=== PATIENT | male | born 1950 | race Caucasian/White ===

== ENCOUNTER 2018-08-13 08:48 | Inpatient (IN) | payer OTHER ==
[~2018-08-13] VITALS: Ht 188 cm; Wt 105.1 kg
[2018-08-13 10:50] VITALS: BP 147/77
[2018-08-13 12:01] LABS: HEMATOCRIT 31.8 % (42.0-52.0); HEMOGLOBIN 10.2 gm/dL (14.0-18.0); MCH 25.2 pg (26.0-34.0); MCHC 31.9 g/dL (28.0-37.0); MPV 7.1 fl. (7.2-11.1); NUCLEATED RBCS 0 /100WBC; PLATELET COUNT* 414 thou/uL (150-400); RBC 4.03 mil/uL (4.50-6.00); RDW-CV 17.4 % (10.5-14.5); WBC 16.4 thou/uL (4.0-11.0)
[2018-08-13] MEDS ORDERED: HUMALOG100 UNIT/1 SUBQ (12:03)
[2018-08-13] MEDS ORDERED: LASIX 20 MG TAB20 MG PO (12:04)
[2018-08-13] MEDS ORDERED: CARVEDILOL3.125 MG PO (12:05)
[2018-08-13 12:10] LABS: APTT 30.8 Seconds (25.0-31.3); INR 1.1; PROTIME 11.6 Seconds (9.20-11.50)
[2018-08-13 12:22] LABS: ALBUMIN 2.1 g/dL (3.4-5.0); CALCIUM 8.6 mg/dL (8.5-10.1); CREATININE 1.2 mg/dL (0.6-1.3); MAGNESIUM 1.7 mg/dL (1.8-2.4); POTASSIUM 3.6 mmol/L (3.5-5.1); TOTAL BILIRUBIN 0.6 mg/dL (<0.1-1.0); TOTAL PROTEIN 8.3 g/dL (6.4-8.2)
[2018-08-13 12:41] LABS: ABSOLUTE BASOPHILS 0.2 thou/uL (0.0-0.2); ABSOLUTE EOSINOPHILS 0.2 thou/uL (0.0-0.7); ABSOLUTE MONOCYTES 2.1 thou/uL (0.0-1.2); ANISOCYTOSIS 1+; PLATELET ESTIMATE INCREASED; POIKILOCYTOSIS 1+
--- NOTE | 2018-08-13 12:49 | NUR ---
Nutrition: Consult for wt change. Pt stated he has lost about 50# in past year d/t reducing kcal intake to one meal per day. He has levelled off at ~230# now and he is more comfortable at this wt. Noticed fluid in BLE. Pt had no nutrition concerns. Defer further assessment at this time.
[2018-08-13 14:23] LABS: URINE BILIRUBIN NEGATIVE (Negative); URINE BLOOD 3+ (Negative); URINE CLARITY CLEAR; URINE COLOR YELLOW; URINE GLUCOSE-RANDOM 1+ (Negative); URINE KETONES NEGATIVE (Negative); URINE LEUKOCYTES-REFLEX TRACE (Negative); URINE NITRITE-REFLEX NEGATIVE (Negative); URINE PROTEIN 2+ (Negative); URINE SPECIFIC GRAVITY 1.015 (1.005-1.030); URINE UROBILINOGEN 0.2 E.U./dl (0.2-1.0)
[2018-08-13 14:32] LABS: SQUAMOUS 0-3 Few /LPF (0-3)
[2018-08-13 14:34] LABS: CASTS None Seen /LPF (None Seen); CRYSTALS None Seen /LPF (None Seen); MUCUS 0-3 Light strn/LPF (None Seen); URINE RBC 3-10 Few /HPF (0-2); URINE WBC-REFLEX 6-15 Few /HPF (0-5)
[2018-08-13 16:00] VITALS: BP 136/62
--- NOTE | 2018-08-13 16:38 | 2DMMODE ---
[place] [address] 2 D/M-MODE ECHOCARDIOGRAM Name: SEEMA GUILLEN Room: [address] IN .R.#: [id number] Admission: 08/13/18 Attend Phys: Kamar Wetzel MD Discharge: Date of : 52 Date of Service: 08/13/18 1637 Report #: [id number] THIS REPORT FOR: //name// APPROVED REPORT Study performed: 08/13/2018 13:58:03 EXAM: Comprehensive 2D, Doppler, and color-flow Echocardiogram Patient Location: In-Patient Room #: 208 Status: routine BSA: 2.29 HR: 92 bpm BP: 147/77 mmHg Rhythm: NSR Other Information Study Quality: Good Indications Dyspnea 2D Dimensions IVSd: 12.86 (7-11mm) LVOT Diam: 21.25 (18-24mm) LVDd: 63.34 mm PWd: 11.74 (7-11mm) Ascending Ao: 38.20 (22-36mm) LVDs: 54.86 (25-40mm) Aortic Root: 37.39 mm Volumes Left Atrial Volume (Systole) LA ESV Index: 74.80 mL/m2 Aortic Valve AoV Peak Lexa.: 2.44 m/s AO Peak Gr.: 23.78 mmHg LVOT Max P.30 mmHg AO Mean Gr.: 13.64 mmHg LVOT Mean P.89 mmHg LVOT Max V: 0.91 m/s AO V2 VTI: 46.25 cm LVOT Mean V: 0.65 m/s BO (VTI): 1.36 cm2 LVOT V1 VTI: 17.70 cm Mitral Valve E/A Ratio: 0.78 MV Decel. Time: 47.65 ms MV E Max Lexa.: 1.03 m/[place] [address] 2 D/M-MODE ECHOCARDIOGRAM Name: SEEMA GUILLEN Room: [address] IN .R.#: [id number] Admission: 08/13/18 Attend Phys: Kamar Wetzel MD Discharge: Date of : 52 Date of Service: 08/13/18 1637 Report #: [id number] MV PHT: 13.82 ms MVA (PHT): 15.92 cm2 TDI E/Lateral E': 11.44 Lateral E' Lexa.: 0.09 m/s Pulmonary Valve PV Peak Lexa.: 0.97 m/s PV Peak Gr.: 3.73 mmHg Left Ventricle Left ventricle is moderately dilated. Paradoxical septal motion consistent with paced rhythm. There is global hypokinesis of the left ventricle. The anterior wall is thinned and akinetic There is normal left ventricular wall thickness. Left ventricular systolic function is moderate to severely decreased. LVEF is 25-30%. Grade I - abnormal relaxation pattern. Right Ventricle Right ventricle is dilated. The right ventricular systolic function is normal. Pacemaker lead is present in the right ventricle. Atria Left atrium is severely dilated. Right atrium is dilated. Aortic Valve Moderate aortic valve sclerosis. No aortic regurgitation is present. Moderate aortic stenosis. Mitral Valve There is mitral annular calcification. Mild mitral regurgitation. No evidence of mitral valve stenosis. Tricuspid Valve The tricuspid valve is normal in structure. Trace tricuspid regurgitation. No pulmonary hypertension. Pulmonic Valve The pulmonary valve is normal in structure. There is no pulmonic valvular regurgitation. Great Vessels The aortic root is normal in size. IVC is normal in size and collapses >50% with [place] [address] 2 D/M-MODE ECHOCARDIOGRAM Name: SEEMA GUILLEN Room: [address] IN [facility]#: [id number] Admission: 08/13/18 Attend Phys: Kamar Wetzel MD Discharge: Date of : 52 Date of Service: 08/13/18 1637 Report #: [id number] There is no pericardial effusion. <Conclusion> LVEF is 25-30%. Paradoxical septal motion consistent with paced rhythm. There is global hypokinesis of the left ventricle. The anterior wall is thinned and akinetic Left atrium is severely dilated. Moderate aortic valve sclerosis. Moderate aortic stenosis. No aortic regurgitation is present. Mild mitral regurgitation. <ELECTRONICALLY SIGNED> By: Tyler Burton MD, FACC 08/13/18 [phone] 36 Tyler Burton MD, FACC /INF
--- NOTE | 2018-08-13 17:01 | NUR ---
PT ADMITTED TO ROOM 208 VIA WHEELCHAIR DIRECT ADMIT FROM WOUND CARE. PT ORIENTED TO ROOM AND CALL LIGHT. ADMISSION ASSESSMENT AND HISTORY COMPLETED. REFER TO CHARTING. PT A&0X4, DENIES ANY PAIN OR SHORTNESS OF BREATH AT THIS TIME. BILATERAL FOOT WOUNDS NOTED. PICTURES TAKEN IN WOUND CLINIC AND PLACED IN CHART. ID AND PODIATRY CONSULT IN PLACE. ORDERS RECEIVED FOR XRAY OF FEET AND CT OF FEET. URINALYSIS OBTAINED AND SENT TO LAB. PT TRACING V PACED ON THE LABORATORY ASSISTANT. ON RA SAT UPPER 90'S. DENIES ANY SHORTNESS OF BREATH. PT UP WITH 1 ASSIST AND WALKER TO BATHROOM. ECHO AND CXR ORDERED. REFER TO RESULTS. CARDIOLOGY CONSULT PLACED PER DR MORENO FOR ELEVATED TROPONIN AND SURGERY CLEARANCE. PT STATES HE LIVES AT HOME WITH HIS WHO IS CURRENTLY IN THE HOSPITAL. PT IN CONTACT ISOLATION FOR MRSA IN WOUNDS. CULTURE PENDING. ORDERS RECEIVED FOR 500ML BOLUS PRIOR TO CT WITH CONTRAST. REFER TO EMAR. HOME MEDICATIONS RECONCILED. MEDICARE AND FALL AGREEMENT SIGNED AND PLACED IN CHART. IV ACCESS OBTAINED. MEDICATIONS PER JUN. PT REPOSITIONED EVERY 2 HOURS FOR COMFORT. HOURLY ROUNDING OBSERVED. BED IN LOW POSITION. BED ALARM IN PLACE. FALL PRECAUTIONS IN PLACE. CALL LIGHT WITHIN REACH. WILL CONTINUE PLAN OF CARE.
[2018-08-13 20:00] VITALS: BP 99/52
[2018-08-14] VITALS: BP 124/65
[2018-08-14 02:05] LABS: GLYCOHEMOGLOBIN (HGB A1C) 9.7 % (4.8-5.6)
[2018-08-14 04:00] VITALS: BP 132/64
--- NOTE | 2018-08-14 05:06 | NUR ---
PT CURRENTLY SITTING UP ON SIDE OF BED. NO C/O PAIN, PT VPACED ON MONITOR. PT NPO S[place]CE [place] FOR DEBRIDEMENT TODAY. PT ON 2L NC SINCE THIS AM. PT AM LABS TO BE REVIEWED.
[2018-08-14 05:32] LABS: ABSOLUTE BASOPHILS 0.1 thou/uL (0.0-0.2); ABSOLUTE EOSINOPHILS 0.3 thou/uL (0.0-0.7); ABSOLUTE LYMPHOCYTES 1.3 thou/uL (0.8-5.3); ABSOLUTE MONOCYTES 1.1 thou/uL (0.0-1.2); ABSOLUTE NEUTROPHILS 11.9 thou/uL (1.6-8.1); BASOPHILS 0.6 %; EOSINOPHILS 2.2 %; HEMATOCRIT 27.7 % (42.0-52.0); HEMOGLOBIN 8.7 gm/dL (14.0-18.0); LYMPHOCYTES 8.7 %; MCHC 31.3 g/dL (28.0-37.0); MCV 80.1 fL (80.0-100.0); MONOCYTES 7.6 %; MPV 7.1 fl. (7.2-11.1); NUCLEATED RBCS 0 /100WBC; POLYS 80.9 %; RBC 3.46 mil/uL (4.50-6.00); RDW-CV 17.4 % (10.5-14.5); WBC 14.8 thou/uL (4.0-11.0)
[2018-08-14 05:41] LABS: PLATELET COUNT* 300 thou/uL (150-400)
[2018-08-14 05:47] LABS: ANION GAP 1 mmol/L (7-16); BUN 19 mg/dL (7-18); CALCIUM 8.1 mg/dL (8.5-10.1); CHLORIDE 98 mmol/L (98-107); CHOLESTEROL 103 mg/dL (<200); CO2 32 mmol/L (21-32); CREATININE 1.4 mg/dL (0.6-1.3); GLUCOSE 217 mg/dL (70-99); HDL CHOLESTEROL 20 mg/dL (>40); LDL CHOLESTEROL 69 mg/dL (<100); POTASSIUM 4.1 mmol/L (3.5-5.1); SODIUM 131 mmol/L (136-145); TC:HDL 5.2 Ratio (Not establshd); TRIGLYCERIDE 74 mg/dL (<150); VLDL 15 mg/dL (<40)
[2018-08-14 05:56] LABS: SERUM ASSESSMENT Clear
[2018-08-14 06:03] LABS: % SATURATION 15 % (20-39); IRON 19 ug/dL (50-175)
[2018-08-14 07:10] VITALS: BP 142/86
--- NOTE | 2018-08-14 07:52 | NUR ---
GIVING REPORT TO ONCOMING NURSE WHEN AIDES CAME AND SAID PT WAS ON THE FLOOR BESIDE HIS BED ON HIS KNEES, WENT INTO PT ROOM WITH AMTTHEW BORGES FOR DAYSHIFT AND THE TWO CNAs. ASKED PT WHAT HAPPENED AND HE SAID THAT HE WAS SITTING ON EDGE OF BED AND MUST HAVE DOZED OFF. PT POST FALL VS TAKEN SEE CHART. PLACED CALL TO MD. PLACED PT BACK IN BED. PT STATED HE WAS NOT IN ANY PAIN. NO INJURY COULD BE NOTED. PT HAD BEEN COMPLIANT WITH CALLING FOR ASSISTANCE AND BED ALARM UTILIZED THROUGHOUT SHIFT. PT REMAINS A&OX4. PT STATED HE FEELS FINE. TWO ATTEMPTS HAVE BEEN MADE TO CONTACT DR. HAMILTON. AWAITING HIS CALL BACK.
[2018-08-14 07:57] VITALS: BP 131/68
[2018-08-14 11:48] LABS: ESR (SEDRATE) 69 mm/hr (0-20)
--- NOTE | 2018-08-14 12:04 | CON ---
[address] [address] CONSULTATION Name: MINDYSEEMA Timbo Room: [address] IN M.R.#: [id number] Admission: 08/13/18 Attend Phys: Kamar Wetzel MD Discharge: Date of : 52 Report #: [id number] THIS REPORT FOR: //name// CC: Adalberto Haines Physician staff Kamar CHAMPAGNE DATE OF SERVICE: 08/13/2018 TYPE OF REPORT: Infectious disease consultation. ATTENDING PHYSICIAN: Kamar Wetzel M.D. REASON FOR EVALUATION: Bilateral infected diabetic foot ulcer. HISTORY OF PRESENT ILLNESS: Chart reviewed, the patient examined. This is a 68-year-old gentleman with known diabetes mellitus diagnosed in the late 80s. This was complicated by peripheral neuropathy, has known vasculopathy including oblique coronary artery disease and has an implantable defibrillator as well. He noted over the course of the last several days to weeks, has had worsening appearance of his distal bilateral lower extremities. It is notable he has had multiple toe amputations with only 2 residual toes on the left foot. Denies any significant pain, although with the neuropathy, he does have increasing inflammatory signs including redness, swelling. It is not clear to me why he has had significant fevers and he has had some moderately elevated blood sugars. His appetite has been fair. Denies any significant dyspnea, has had some diarrhea. He was directly admitted from the wound care center to undergo surgical evaluation. Lab and cultures are pending. ALLERGIES: Denies. MEDICATIONS: Include insulin, furosemide and carvedilol. PAST MEDICAL HISTORY: As noted above, diabetes mellitus, sequelae. SOCIAL HISTORY: Chews tobacco. No longer drinks ethanol. FAMILY HISTORY: Noncontributory. REVIEW OF SYSTEMS: Otherwise, 10-point review of systems unremarkable except as noted above history of present illness. PHYSICAL EXAMINATION: GENERAL: He is alert, cooperative, in mild distress. He appears somewhat chronically ill. He is pleasant and cooperative[place] [address] CONSULTATION Name: SEEMA GUILLEN Room: [address] IN .R.#: [id number] Admission: 08/13/18 Attend Phys: Kamar Wetzel MD Discharge: Date of : 52 Report #: [id number] encephalopathic. VITAL SIGNS: Pending. HEENT: Normocephalic. Extraocular muscles intact. NECK: Supple. LUNGS: Diminished breath sounds. HEART: Regular rhythm. Not appreciated any murmur. ABDOMEN: Soft. Mildly distended. There are no peritoneal signs. EXTREMITIES: Bilateral lower extremities have new dressings in place. Did review the photographs showed marked necrosis and large extended for both feet. There is some vasculopathic changes noted with dermopathy of the skin of the legs and some superficial excoriations. GENITOURINARY AND RECTAL: Deferred. LABORATORY DATA: Pending. ASSESSMENT AND PLAN: Bilateral diabetic foot ulcers complicated by infection presumably polymicrobial, I suspect component of ischemia. We will continue empiric therapy. Await surgical evaluation. reversible. <ELECTRONICALLY SIGNED> By: Mor Patiño MD 08/14/18 1204 1141 [id number] Patiño MD /nt
--- NOTE | 2018-08-14 12:50 | CON ---
[address] [address] CONSULTATION Name: SEEMA GUILLEN Room: [address] IN M.R.#: [id number] Admission: 08/13/18 Attend Phys: Kamar Wetzel MD Discharge: Date of : 52 Report #: [id number] THIS REPORT FOR: //name// CC: Adalberto Haines Physician staff Kamar CHAMPAGNE DATE OF SERVICE: 08/13/2018 CHIEF COMPLAINT: Bilateral diabetic foot wounds with soft tissue infection. HISTORY OF PRESENT ILLNESS: A 68-year-old male admitted directly from [facility] for nonhealing, infected foot ulcerations. Specifically, he has a large full thickness ulceration to the right plantar foot, which has a remote history of prior transmetatarsal amputation. The left foot has a full thickness ulceration to the plantar aspect of the calcaneus. He states the wound has been present for 4 weeks, but he is unable to give a clear timeline, and he is a poor historian. He had arterial Doppler duplex ultrasound today, the report is pending. Foot radiographs were negative for osteomyelitis bilaterally. He is scheduled for CT of his feet this evening. He is currently on parenteral vancomycin and Zosyn with good tolerance. He has a pacemaker or defibrillator. Denies chest pain or heart disease or heart failure, but he does have some shortness of breath while lying flat. Chest x-ray shows right pleural effusion with lower lung opacities suggesting a lower middle lobe pneumonia/atelectasis or parenchymal scarring. Upper lungs are clear, no pneumothorax. Blood cultures pending x 2. He denies fevers, chills, nausea, malaise or foot pain. 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 LABORATORY DATA: WBC 16.4, RBC 4.03, hemoglobin 10.2, hematocrit 31.8, platelets 414. BUN 17, creatinine 1.2, glucose 222. Troponin 0.16. PHYSICAL EXAMINATION: Temperature 99.3, pulse 72, respirations 18, blood pressure 136/62. There is a large full thickness ulceration of the right plantar transmetatarsal stump that has yellow/green fibronecrotic tissue with a foul odor. There is virtually no granulation, although there are a few areas of focal bleeding when I pull off the dressing. The foot is warm, faintly palpable dorsalis pedis and posterior tibial pulses with immediate periwound capillary refill. There is no pallor or cyanosis. The wound is extremely fibrotic and encompasses the entire distal aspect of the plantar transmetatarsal stump, which is approximately 60% of the remaining plantar foot surface. The left foot has a full thickness ulceration to the posterior calcaneus with yellow/brown fibronecrotic tissue with a mixture of red granulation over about 50% of the wound. There is no visible bone or tendon. There is moderate erythema consistent with cellulitis. I can palpate the dorsalis [place] [address] CONSULTATION Name: SEEMA GUILLEN Room: [address] IN .R.#: [id number] Admission: 08/13/18 Attend Phys: Kamar Wetzel MD Discharge: Date of : 52 Report #: [id number] tibial pulse to the left extremity as well. No popliteal adenopathy noted to either extremity. No Homans or Echeverria sign to either extremity. IMPRESSION: Diabetic ulcerations to bilateral feet with soft tissue infection. PLAN: The patient requires surgical debridement of both wounds, especially the right plantar transmetatarsal stump wound. There is no evidence of osteomyelitis per x-rays, nor is there visible or palpable bone. I think it is reasonable to perform an extensive wound debridement with a topical wound care knowing that the patient may require bone debridement in the future. We will keep the patient n.p.o. tonight for possible surgical debridement tomorrow pending cardiac clearance. <ELECTRONICALLY SIGNED> By: Singh Dalal DPM 08/14/18 1250 1742 [id number] Dalal DPM /vicki
--- NOTE | 2018-08-14 13:03 | NUR ---
PT HAS CRITICAL HIGH OF VANC AT 21, JOSE IN PHARMACY NOTIFIED AND HE STATED THEY WOULD MAKE THE NECESSARY ADJUSTMENTS
[2018-08-14 13:33] LABS: URINE BILIRUBIN NEGATIVE (Negative); URINE BLOOD 2+ (Negative); URINE CLARITY CLEAR; URINE COLOR YELLOW; URINE GLUCOSE-RANDOM NEGATIVE (Negative); URINE KETONES NEGATIVE (Negative); URINE LEUKOCYTES 1+ (Negative); URINE NITRITE NEGATIVE (Negative); URINE PROTEIN NEGATIVE (Negative); URINE UROBILINOGEN 0.2 E.U./dl (0.2-1.0)
[2018-08-14 13:43] LABS: BACTERIA 1-9 Few /HPF (None Seen); CASTS None Seen /LPF (None Seen); CRYSTALS None Seen /LPF (None Seen); SQUAMOUS NONE SEEN /LPF (0-3); URINE RBC 0-2 Rare /HPF (0-2); URINE WBC 6-15 Few /HPF (0-5)
--- NOTE | 2018-08-14 14:32 | EKG ---
[place] [address] ELECTROCARDIOGRAM REPORT Name: SEEMA GUILLEN Room: [address] ADM IN M.R.#: [id number] Admission: 08/13/18 Attend Phys: Kamar Wetzel MD Discharge: Date of : 52 Report #: [id number] THIS REPORT FOR: //name// [facility] Test Date: 2018-08-13 Test Time: 14:44:09 Pat Name: SEEMA GUILLEN Department: Room: [address] Gender: M Inspector Chief: [facility] : 1950 Requested By: Kamar Wetzel Order Number: [id number] Umu MD: Seema Crum Measurements Intervals [place] Rate: 94 P: 55 HI: 129 QRS: 141 QRSD: 149 T: -21 QT: 421 QTc: 527 Interpretive Statements Atrial-sensed ventricular-paced rhythm No further analysis attempted due to paced rhythm No previous ECG available for comparison Electronically Signed On 08-14-2018 14:32:31 CDT by Seema Crum [email or web address] <ELECTRONICALLY SIGNED> By: Seema Crum MD, [facility] 08/14/18 1432 1444 1444 Seema Crum MD, FACC /EPI
--- NOTE | 2018-08-14 14:56 | NUR ---
Pt was sound asleep the first time that CM went to assess, and out of the room the second time. CM received a call from the wound care center yesterday regarding a hotline call that they placed on Pt yesterday post his appt/admission to inpt. Wound center was concerned about the condition of Pt's wounds, per wound center, Pt had feces, urine, dirt and dog hair in his wounds. Pt resides at home with his and multiple dogs, is currently also in the hospital at [facility]. Per wound center, Pt has a hx of wound care at [facility]. CM will attempt to assess Pt again tomorrow. Following.
--- NOTE | 2018-08-14 15:32 | NUR ---
CONSULTED TO PLACE PICC FOR MULTIPLE AND DIRECTOR OF CARDIAC REHABILITATION ATB THERAPY NEEDED. CHART REVIEWED. SPOKE WITH PT REGARDING RISK AND BENEFIT. VOICED UNDERSTANDING AND AGREED TO PROCEDURE. DENEIS QUESTIONS. RIGHT UPPER ARM ASSESSED WITH ULTRASOUND. RIGHT BASILIC VEIN IDENITIFIED AND MARKED. USNIG ULTRASOUND AND STERILE TECHNIQUE DOUBLE LUMAN POWER PICC PLACED TO RIGHT BASILIC VEIN PER HOSPITAL POLICY. LINE TRIMMED AT 45CMA DN ADVANCED 42CM LEAVING 3CM EXTERNAL. TIP CONFIRMED WITH SHERLOCK 3CG. GOOD BRISK BLOOD RETURN AND EASY FLUSH. LINE SECURED AND RELEASED FOR USE TO PRIMARY RN.
--- NOTE | 2018-08-14 17:23 | NUR ---
PT ARRIVED BACK TO THE UNIT AT 1715. VSS AND WILL BE CHARTED IN THE EMAR AFTER THIS NOTE IS MADE. PT HAD DEBRIDMENT PROCEDURE DONE THIS AFTERNOON AND DRESSINGS ARE CDI AT THIS TIME. WILL CONTINUE TO MONITOR AND ASSESS.
[2018-08-14 18:28] VITALS: BP 110/68
--- NOTE | 2018-08-14 19:23 | NUR ---
SPOKE WITH DR GOLD REGARDING PT FALL AND CODE STATUS THIS MORNING. PT VSS AND NO C/O PAIN OR INJURY AT THIS TIME. PT WENT DOWN FOR PROCEDURE AND IT WAS DISCOVERED WHILE PT WAS OFF UNIT THAT A TOURNIQUET WAS LEFT ON THE PT, NOT SURE WHEN THIS OCCURED THE PT HAD LABS AND A PICC LINE PLACED DURING THE TIME THE TOURNIQUET COULD HAVE BEEN USED, REDNESS WAS NOTED BUT NO INJURY NOTED AT THIS TIME. PT STEPDAUGHTER CAME TO UNIT AND LEFT SOME CLOTHING AND UPDATED THIS RN WITH HER INFORMATION (JUAN RUIZ [phone]). IT WAS AT THIS TIME IT WAS DISCOVERED THAT THE ADVANCE DIRECTIVE COULD NOT BE FOUND, THIS RN NOTIFIED BIKENDRA WITH CASE MANAGEMENT AND SHE STATED SHE WOULD COME SEE THE PT. WENT WITH NOC SHIFT RN TO SEE PT AT SHIFT CHANGE AND PT WAS FOUND TO BE SLEEPING IN BED WITH THE BED ALARM SET AT THIS TIME. HOURLY ROUNDING MAINTAINED, WILL SIGN OFF AT THIS TIME.
[2018-08-14 19:50] VITALS: BP 126/53
[2018-08-15] VITALS: BP 123/44
[2018-08-15 04:00] VITALS: BP 101/45
--- NOTE | 2018-08-15 06:09 | NUR ---
PT CARE ASSUMED AT 1930. SAT MAINTAINED IN [place]. CALL LIGHT WITHIN REACH AND BED IN LOW PPOSITION. C/O PAIN, MEDICATION GIVEN PER EMAR. ALERT AND ORIENTED X4. DRESSING C/D/I. HOURLY ROUNDING DONE FOR PT SAFETY.
[2018-08-15 08:00] VITALS: BP 103/46
--- NOTE | 2018-08-15 11:00 | NUR ---
Pt is A&O. Resides at home with his . Pt states that he is fairly independnent, completes the cooking and driving. Per Pt, is currently in the hospital, Pt is unsure why. Pt states that he uses a walker for mobility. Hx of HH but does not recall the name of the agency. Hx of skilled at [place]. CM informed of the possible need for skilled at [place], Pt stated that he wants to figure out where his is going, before he decides what skilled facility he would want to go to. CM attempted to contact Pt's stepdtr, Elizabethlinda Cruz [phone], left VM. Following.
[2018-08-15 11:49] VITALS: BP 102/50
[2018-08-15 12:43] LABS: HEMATOCRIT 24.1 % (42.0-52.0); HEMOGLOBIN 7.7 gm/dL (14.0-18.0); MCH 25.6 pg (26.0-34.0); MCHC 31.9 g/dL (28.0-37.0); MCV 80.4 fL (80.0-100.0); MPV 7.2 fl. (7.2-11.1); RBC 2.99 mil/uL (4.50-6.00); RDW-CV 17.6 % (10.5-14.5); WBC 12.3 thou/uL (4.0-11.0)
[2018-08-15 12:52] LABS: CALCIUM 7.9 mg/dL (8.5-10.1); CREATININE 2.1 mg/dL (0.6-1.3); POTASSIUM 4.3 mmol/L (3.5-5.1)
--- NOTE | 2018-08-15 15:11 | NUR ---
WOUND CARE NOTE: CONSULTED FOR DFU PT POST OP DAY ONE POST DEBRIDMENT OF BILAT FOOT WOUNDS. PT WAS ASSESED WITH ID PHYSICIAN. LEFT MEDIAL HEEL: FULL THICKNESS ULCERATION MEASURING 5.5X5X0.5. 30% RED GRANULATION TISSUE, 70% YELLOW BLACK NON VIABLE TISSUE. MACERATION TO PERIWOUND. MODERATE AMOUND OF SEROSANGUINOUS DRAINAGE NOTED ON OLD DRESSING. WOUND CLEANSED WITH WOUND CLEANSER, PATTED DRY, PICTURES OBTAINED, APPLIED AQUACEL AG TO WOUND BED, COVERED WITH ABD KERLIX AND ALEJANDRA WRAPS. LEFT LATERAL FOOT: FULL THICKNESS ULCERATION MEASURING 5X5X0.3. 50% YELLOW SLOUGH TISSUE WITH 50% RED NONGRANULAR TISSUE. SMALL AMOUNT SEROSANGUINOUS DRAINAGE TO OLD DRESSING.MALLORY WOUND WITH THICKENED SKIN. WOUND CLEANSED WITH WOUND CLEANSER, PATTED DRY PICTURE OBTAINED, APPLIED AQUACEL AG TO WOUND BED, COVERED WITH 4X4, KERLIX AND ALEJANDRA WRAPS. RIGHT MEDIAL FOOT: FULL THICKNESS ULCERATION MEASURING 2.5X3.2X0.3. MOIST RED GRANULATION TISSUE TO WOUND BED. MALLORY WOUND WITH NEW EPITHILIUM. SMALL AMOUNT OF SEROSANGUINEOUS FLUID. WOUND CLEANSED WITH WOUND CLEANSER, PATTED DRY, PICTURE OBTAINED. APPLIED AQUACEL AG TO WOUND BED, COVERED WITH 4X4, KERLIX AND ALEJANDRA WRAPS. RIGHT PLANTAR/TMA SITE: FULL THICKNESS ULCERATION, FOUL ODER NOTED. MEASURES 17X13.5X1. 80% WOUND BED NON VIALBLE BLACK, IBANEZ, YELLOW MOIST TISSUE. 20% RED NON GRANULAR TISSUE. LARGE AMOUNT OF SANGUINEOUS DRAINAGE TO OLD DRESSING. AT 5TH METATARSAL HEAD SITE SANGUINEOUS DRAINAGE STILL NOTED. MALLORY WOUND MACERATED. WOUND CLEANSED WITH WOUND CLEANSER, PATTED DRY, PICTURE OBTAINED, APPLIED AQUACEL AG TO WOUND BED, COVERED WITH ABDS, MULTIPLE LAYERS OF KERLIX, AND ALEJANDRA WRAPS. LEFT ISCHIAL TUBEROSITY: STAGE 3 PRESSURE ULCER MEASURES 0.8X0.8X0.2. MOIST YELLOW WOUND BED, WITH BUDS OF GRANULATION. MALLORY WOUND INTACT. CLEANSED WITH WOUND CLEANSER, AQUACEL AG APPLIED TO WOUND BED, COVERED WITH BOARDERED FOAM DRESSING. BLANCHABLE REDNESS TO SACRAL AREA, RED FLAKEY. BARRIOR CREAM APPLIED. PT EDUCATED ON OFFLOADING OF PRESSURE ULCER SITE, OFFLOADING FEET WITH PILLOWS. NOT WALKING MUCH POSSIBLE. USING ARMS FOR PROPELLING WC INSTEAD OF USING FEET. GOOD NUTRITION, PT STATES HE LIKES GLUCERNA. COMMUNICATED UNDERSTANDING OF EDUCATION. RECCOMENDATIONS: OFFLOAD HEELS WHILE IN BED, OFFLOAD OFF PRESSURE ULCER WITH WEDGES AND Q2 HR TURNS WHEN IN BED. LIMIT SHORT AMBULATION FROM CHAIR TO BED. USE WAFFLE CUSHION IN CHAIR/WC BARRIOR CREAM TO SACRAL AREA. ENCOURAGE GOOD NUTRITION TIGHT BLOOD GLUCOSE CONTROL
[2018-08-15 15:28] VITALS: BP 112/54
--- NOTE | 2018-08-15 15:33 | NUR ---
RECEIVED REPORT FORM RADHA BORGES. ASSUMED CARE OF PT AROUND 0730. PT A&O X4. VSS. POWER GENERATING PLANT OPERATOR IN PLACE TRACING VPACED. AM ASSESSMENT AND VITALS COMPLETED CHARTED. RONALDO PICC LINE INTACT - BLOOD DRAW SLUGGISH THIS AM; STEPHANIE BORGES TROUBLESHOOTED LINE AND IT NOW FLUSHES AND DRAWS BLOOD EASILY. PT SEEN BY WOUND NURSE THIS AFTERNOON, PICTURES TAKEN AND WOUNDS REDRESSED. PT 02 SAT 99-100% ON 2L PER NC, TITRATED OFF TO ROOM AIR BUT PT REQUESTING TO USE 1L PER NC PRN/FOR COMFORT. PT SHOWING GOOD APPETITE. VOIDING PER URINAL. UP TO BEDSIDE CHAIR WITH ASSISTANCE FOR MEALS. FALL PRECAUTIONS IN PLACE. CALL LIGHT IS WITHIN REACH. HOURLY ROUNDING PERFORMED. WCTM.
--- NOTE | 2018-08-15 18:31 | NUR ---
VSS. PT HAD LOW BLOOD SUGAR THIS EVENING - MEETER READ "LO"; GAVE DEXTROSE IV, JUICE AND CRACKERS WITH PEANUTBUTTER, BLOOD GLUCOSE CAME UP TO 95. RECHECKED GLUCOSE ONE HOUR LATER, 86. HELD DINNER-TIME INSULIN. PT ASYMPTOMATIC WITH THE LOW BLOOD GLUCOSE STATING "I DIDN'T FEEL ANY DIFFERENT". PT NOW BACK IN BED RESTING. PT BEING TURNED Q2HRS FOR COMFORT. FALL PRECAUTIONS IN PLACE. CALL LIGHT IS WITHIN REACH, HOURLY ROUNDING PERFORMED.
[2018-08-15 19:50] VITALS: BP 120/84
[2018-08-16] VITALS (7 sets, daily range): BP systolic 96–134; BP diastolic 25–71
--- NOTE | 2018-08-16 08:16 | NUR ---
PT CARE ASSUMED AT 1930. SAT MAINTAINED IN [place]. ALERT AND ORIENTED X4. CALL LIGHT WITHIN REACH AND BED IN LOW PSOITION. C/O PAIN, MEDICATION GIVEN PER EMAR. HOURLY ROUNDING DONE FOR PT SAFETY.
[2018-08-16 11:43] LABS: HEMATOCRIT 22.3 % (42.0-52.0); MCH 25.5 pg (26.0-34.0); MCHC 31.5 g/dL (28.0-37.0); MCV 80.8 fL (80.0-100.0); MPV 7.5 fl. (7.2-11.1); NUCLEATED RBCS 0 /100WBC; PLATELET COUNT* 242 thou/uL (150-400); RBC 2.76 mil/uL (4.50-6.00); RDW-CV 17.6 % (10.5-14.5); WBC 11.3 thou/uL (4.0-11.0)
[2018-08-16 12:06] LABS: ALBUMIN 1.5 g/dL (3.4-5.0); CALCIUM 7.8 mg/dL (8.5-10.1); CREATININE 2.8 mg/dL (0.6-1.3); POTASSIUM 4.7 mmol/L (3.5-5.1); TOTAL BILIRUBIN 0.3 mg/dL (<0.1-1.0); TOTAL PROTEIN 6.1 g/dL (6.4-8.2)
[2018-08-16 12:42] LABS: ABSOLUTE BASOPHILS 0.2 thou/uL (0.0-0.2); ABSOLUTE EOSINOPHILS 0.1 thou/uL (0.0-0.7); ABSOLUTE MONOCYTES 0.5 thou/uL (0.0-1.2); ABSOLUTE NEUTROPHILS 9.5 thou/uL (1.6-8.1); PLATELET ESTIMATE ADEQUATE
--- NOTE | 2018-08-16 15:06 | PATH ---
[facility] [address] [place] [address] PATHOLOGY RPT PROCEDURE Name: SEEMA SWAIN Room: [address] IN M.R.#: [id number] Admission: 08/13/18 Date of : 52 Discharge: Report #: [id number] Path Case #: [id number] [facility] Accession Number: [id number] . 01 Material submitted: . foot - RIGHT FOOT SOFT TISSUE. Modifiers: right . 01 Clinical history: . Pre-op diagnosis: Diabetic foot ulcers Post-op diagnosis: Diabetic ulcers, bilateral feet/ankle . 02 Diagnosis: Right foot tissue biopsy: - Benign fibrovascular connective tissue with non-specific acute and chronic inflammation and fibrosis and containing prominent blood vessels showing severe calcifying arteriosclerosis. (MAYRA/db; 08/16/2018) LBQ/08/16/2018 . 02 Electronically signed: . Santiago Blakely MD, Pathologist NPI- [id number] . 01 Gross description: . The specimen is received in formalin, labeled "Seema Swain, right foot tissue biopsy". Received is a segment of pale paul soft tissue measuring 2.2 x 1.3 x 0.5 cm in greatest dimensions. The specimen is trisected and entirely submitted in cassette A1. (CAA; 08/15/2018) QAC/QAC . 02 Pathologist provided ICD-10: L08.9, I70.401 . 02 CPT . 730954 Specimen Comment: A courtesy copy of this report has been sent to Specimen Comment: [phone], . Specimen Comment: Report sent to DR MORENO / DR CHAMPAGNE Performed at: [address], [place] [id number] MD Trace Fox MD Phone: [phone] Performed at: 02 [facility] [address], [place], [place] [id number] MD Santiago Blakely MD Phone: [phone]
[2018-08-16 18:31] LABS: ABSOLUTE BASOPHILS 0.1 thou/uL (0.0-0.2); ABSOLUTE EOSINOPHILS 0.3 thou/uL (0.0-0.7); ABSOLUTE LYMPHOCYTES 1.2 thou/uL (0.8-5.3); ABSOLUTE MONOCYTES 1.1 thou/uL (0.0-1.2); ABSOLUTE NEUTROPHILS 9.9 thou/uL (1.6-8.1); BASOPHILS 0.6 %; EOSINOPHILS 2.2 %; HEMATOCRIT 24.8 % (42.0-52.0); HEMOGLOBIN 7.8 gm/dL (14.0-18.0); LYMPHOCYTES 9.7 %; MCH 25.1 pg (26.0-34.0); MCHC 31.4 g/dL (28.0-37.0); MONOCYTES 8.6 %; MPV 7.5 fl. (7.2-11.1); NUCLEATED RBCS 0 /100WBC; PLATELET COUNT* 249 thou/uL (150-400); POLYS 78.9 %; RDW-CV 17.5 % (10.5-14.5); WBC 12.5 thou/uL (4.0-11.0)
--- NOTE | 2018-08-16 18:33 | NUR ---
PATINET RESTING IN BED. UP WITH ASSIST X2 TO CHAIR. BILATERAL FETT DRESSINGS IN PACE. PATINET TO RECEIVE 1 UNIT PRBC TONIGHT. VITAL SIGNS STABLE AND PATIENT IN NO APPARNET SIGNS OF DISTRESS. HOURLY ROUNDING COMPLETED FOR PATIENT SAFETY.
[2018-08-16 22:10] LABS: HEMATOCRIT 25.7 % (42.0-52.0); HEMOGLOBIN 8.1 gm/dL (14.0-18.0)
[2018-08-17] VITALS: BP 117/49
--- NOTE | 2018-08-17 02:55 | NUR ---
ASSUMED PT CARE AT 1930. ASSESSMENT COMPLETED CHARTED. ABLE TO MAKE NEEDS KNOWN. PT UP WITH 2 ASSIST TO CHAIR OR BSC. NO C/O PAIN. HAS STATED HE WAS UNCOMFORTABLE SEVERAL TIMES. REPOSITIONED SEVERAL TIMES AND OFFERED MEDICATION WHICH HE STATED HE DIDNT WANT. PT SLEEPING ON AND OFF. PT RECIEVED 1 UNIT OF BLOOD ON MY SHIFT AND HAS BEEN COMPLETED AND CHARTED WITH NO REACTIONS NOTED. WILL CONTINUE TO MONITOR.
[2018-08-17 04:00] VITALS: BP 128/39
[2018-08-17 05:57] LABS: ALBUMIN 1.5 g/dL (3.4-5.0); CALCIUM 7.7 mg/dL (8.5-10.1); CREATININE 3.3 mg/dL (0.6-1.3); POTASSIUM 5.6 mmol/L (3.5-5.1); TOTAL BILIRUBIN 0.4 mg/dL (<0.1-1.0); TOTAL PROTEIN 6.4 g/dL (6.4-8.2)
[2018-08-17 08:00] VITALS: BP 127/64
[2018-08-17 12:03] VITALS: BP 127/43
--- NOTE | 2018-08-17 16:23 | NUR ---
PATIENT RESTING IN BED. UP TO BSC AND CHAIR WITH ASSIST X1. AOX4. PATIENT HAD A LARGE BM TODAY. VITAL SIGNS STABLE. DRESSINGS CHANGED ON BOTH FEET PER WOUND CARE ORDERS. HOULRY ROUNDING COMPLETED FOR PATIENT SAFETY.
[2018-08-17 20:00] VITALS: BP 132/50
[2018-08-17 23:15] VITALS: BP 114/54
[2018-08-18 04:00] VITALS: BP 110/89
[2018-08-18 05:05] LABS: HEMATOCRIT 27.2 % (42.0-52.0); HEMOGLOBIN 8.7 gm/dL (14.0-18.0); MCH 25.9 pg (26.0-34.0); MPV 7.7 fl. (7.2-11.1); RBC 3.36 mil/uL (4.50-6.00); RDW-CV 17.4 % (10.5-14.5); WBC 11.6 thou/uL (4.0-11.0)
[2018-08-18 05:29] LABS: APTT 32.2 Seconds (25.0-31.3); INR 1.2; PROTIME 12.1 Seconds (9.20-11.50)
[2018-08-18 05:47] LABS: ALBUMIN 1.5 g/dL (3.4-5.0); ALKALINE PHOSPHATASE 113 U/L (46-116); ANION GAP 8 mmol/L (7-16); BUN 41 mg/dL (7-18); CALCIUM 7.6 mg/dL (8.5-10.1); CHLORIDE 96 mmol/L (98-107); CO2 28 mmol/L (21-32); CREATININE 3.5 mg/dL (0.6-1.3); GLUCOSE 85 mg/dL (70-99); NT-PRO BRAIN NAT PEPTIDE > 35000 pg/mL (<300); POTASSIUM 4.9 mmol/L (3.5-5.1); SGOT 27 U/L (15-37); SGPT 59 U/L (30-65); SODIUM 132 mmol/L (136-145); TOTAL BILIRUBIN 0.4 mg/dL (<0.1-1.0); TOTAL PROTEIN 6.5 g/dL (6.4-8.2)
--- NOTE | 2018-08-18 05:51 | NUR ---
ASSUMED PT CARE AT 1930. ASSESSMENT COMPLETED CHARTED. ABLE TO MAKE NEEDS KNOWN. UP TO THE CHAIR AND BACK TO BED SEVERAL TIMES DURING THE NIGHT. NO C/O PAIN OR DISCOMFORT. PT RESTING IN THE CHAIR AT THIS TIME. CALL LIGHT WITHIN REACH. WILL CONTINUE TO MONITOR.
[2018-08-18 08:00] VITALS: BP 135/63
[2018-08-18 12:00] VITALS: BP 126/48
[2018-08-18 12:06] LABS: URINE BILIRUBIN NEGATIVE (Negative); URINE BLOOD 1+ (Negative); URINE CLARITY SL CLOUDY; URINE COLOR YELLOW; URINE GLUCOSE-RANDOM NEGATIVE (Negative); URINE KETONES NEGATIVE (Negative); URINE LEUKOCYTES 1+ (Negative); URINE NITRITE NEGATIVE (Negative); URINE PROTEIN TRACE (Negative); URINE SPECIFIC GRAVITY 1.015 (1.005-1.030); URINE UROBILINOGEN 0.2 E.U./dl (0.2-1.0)
[2018-08-18 12:15] LABS: SQUAMOUS 0-3 Few /LPF (0-3); URINE WBC 6-15 Few /HPF (0-5)
[2018-08-18 12:16] LABS: CASTS None Seen /LPF (None Seen); MUCUS None Seen strn/LPF (None Seen); URINE RBC 3-10 Few /HPF (0-2)
[2018-08-18 12:17] LABS: CRYSTALS None Seen /LPF (None Seen)
--- NOTE | 2018-08-18 14:21 | NUR ---
ASSUMED PT CARE 0730, SITTING ON CHAIR. AOX4, UP WITH ASSIST. O2 SAT AT 90'S ON 5L NC. V PACED, BBB ON TELE. PT IS FOR ACCU CHECK, CARB CONTROL DIET. LAST BM 08/17/18, ABDOMEN SOFT AND ROUND. PT HAS R UPPER ARM PICC LINE INTACT. PT HAS BILATERAL FEET OPEN SORE ULCERATION. REDNESS ON THE BOTTOM NOTED. PT IS ON CONTACT ISOLATION. VSS, AM ASSESSMENT CHARTED. MEDS GIVEN PER MAR. HOURLY ROUNDING, REPOSITION Q2, CALL LIGHT WITHIN REACH. WILL CONTINUE TO MONITOR.
[2018-08-18 16:00] VITALS: BP 127/61
--- NOTE | 2018-08-18 18:34 | NUR ---
PT AOX4, UP WITH ASSIST, O2 SAT AT 90'S AT 2L NC, TITRATED FROM 5L. TRACING V PACED, BBB ON TELE. PT DAILY WOUND CLEANSING AND DRESSING DONE. PHOTOGRAPH ULCERATION, FILED ON PT CHART. PT USES URINAL, I&O. U/A COLLECTED. PT FOR ACCU CHECK, CARB CONTROL DIET. PICC LINE INTACT, FLUIDS RUNNING. VSS, ASSESSMENT CHARTED, MEDS GIVEN PER MAR. FALL PRECAUTION, REPOSITION Q2. CALL LIGHT WITHIN REACH. WILL CONTINUE TO MONITOR.
--- NOTE | 2018-08-18 18:51 | NUR ---
I HAVE REVIEWED AND AGREE WITH THE ASSESMENT AND NOTES OF SANGEETHA Kyle RN ON 08/18/18
[2018-08-18 20:00] VITALS: BP 134/49
[2018-08-19] VITALS (30 sets, daily range): BP systolic 84–135; BP diastolic 45–73
--- NOTE | 2018-08-19 11:07 | CON ---
[address] [address] CONSULTATION Name: MINDYSEEMA Izquierdo Room: [address] IN M.R.#: [id number] Admission: 08/13/18 Attend Phys: Kamar Wetzel MD Discharge: Date of : 52 Report #: [id number] THIS REPORT FOR: //name// CC: Adalberto Haines Physician staff Kamar CHAMPAGNE DATE OF SERVICE: 08/16/2018 REQUESTING PHYSICIAN: Dr. Johnson. REASON FOR CONSULTATION: Acute kidney injury. HISTORY OF PRESENT ILLNESS: The patient is a 68-year-old white male, known to us as we have seen him in our office and also in the hospital. He was at [facility] in 04/2018 and required temporary dialysis at that time. He has cardiomyopathy with ejection fraction of the left ventricle around 25-30%. He has a history of diabetes mellitus type 2, history of medical noncompliance, in the past he was heavy alcoholic but stopped drinking several years ago, history of hypertension, and CKD 3. [facility] because of worsening of his bilateral feet ulcers. He is now at the point where they are getting more and more necrotic. So, he was admitted, started with IV Zosyn and vancomycin. His creatinine was 1.2, but today it went up to 2.1 and I was consulted. PAST MEDICAL HISTORY: As I mentioned earlier. SOCIAL HISTORY: No current alcohol abuse. He still chews tobacco. In the past, he was a heavy alcoholic. FAMILY HISTORY: Noncontributory. REVIEW OF SYSTEMS: He states he feels better now. His feet, they do not bother him too much according to him. He has no chest pain. He does have dyspnea on exertion. He does have pollakiuria and nocturia. Rest of the systems reviewed and negative. MEDICATIONS: Reviewed. From my standpoint, he is not on any ALEJANDRA inhibitors or angiotensin receptor blockers. Cardiology managing his diuretics. He is also on Coreg. PHYSICAL EXAMINATION: GENERAL: He is awake, alert, oriented. VITAL SIGNS: Blood pressure today is 133/39, heart rate 72, [place] [address] CONSULTATION Name: SEEMA GUILLEN Room: [address] IN [facility]#: [id number] Admission: 08/13/18 Attend Phys: Kamar Wetzel MD Discharge: Date of : 52 Report #: [id number] HEENT: Pupils are round. NECK: Supple. LUNGS: With decreased air movements bilaterally. No crackles. CARDIOVASCULAR: Very distant heart tones. ABDOMEN: Soft. EXTREMITIES: Lower extremities: Trace edema. Both feet are dressed. ASSESSMENT: 1. Acute kidney injury, probably due to ____ infection. We will need to also make sure that he does not have vancomycin toxicity and Infectious Disease is on the case and they will follow vancomycin level. 2. Chronic kidney disease stage 3. 3. Diabetes mellitus type 2. 4. Ischemic cardiomyopathy with ejection fraction of the left ventricle 25%. 5. Bilateral necrotic ulcers of his feet. PLAN: Keep him euvolemic. Avoid nonsteroidals. Avoid ALEJANDRA inhibitors and angiotensin receptor blockers. Follow vancomycin level. Thank you very much for asking my opinion on acute kidney injury of this patient. <ELECTRONICALLY SIGNED> By: Juaquin Leal MD 08/19/18 1107 1136 0100Alexariki Leal MD /nt
[2018-08-19 11:46] LABS: CALCIUM 6.6 mg/dL (8.5-10.1); CREATININE 3.3 mg/dL (0.6-1.3); POTASSIUM 4.3 mmol/L (3.5-5.1)
--- NOTE | 2018-08-19 12:15 | NUR ---
ASSUMED PT CARE AT 0700 PT IS ALERT AND ORIENTED X 4 PT WENT FOR ANGIOGRAM CAME BACK TO UNIT BLOOD PRESSURE LOW PT DESATING ON 5L/NC PUT PT ON 10L MASK CALLED RT WHO GAVE BREATHING TREATMENT PT O2 SAT ABOVE 90 PT BLOOD SUGAR LOW GAVE PT AMP D50 RECHECKED BLOOD SUGAR 15 MINUTES LATER PT BLOOD SUGAR STABLE PAGED PHYSICIAN REGARDING BLOOD PRESSURE GAVE FLUID BOLUS MONITORING PT BLOOD PRESSURE HAS NOT COME UP PAGED PHYSICIAN PULMONOLOGY SAW PT ORDERED BIPAP AND TRANSFER TO ICU ONCE PT IS ON BIPAP, PT VPACED ON THE MONITOR, RT CALLED REGARDING BIPAP WILL CONTINUE TO MONITOR
--- NOTE | 2018-08-19 13:17 | NUR ---
RECEIVED PT FROM TELEMETRY. PT AWAKE, ALERT AND ORIENTED TO PERSON, PLACE AND YEAR. PT DROWSY. PT >95% ON BIPAP. PT REPOSITIONED WITH WEDGES.
[2018-08-19 13:40] LABS: BE -3.2 mmol/L (-2 to +3); PO2 93.7 mmHg (75.0-100.0)
[2018-08-19 13:44] LABS: PCO2 68.9 mmHg (35.0-45.0); pH 7.183 (7.340-7.450)
--- NOTE | 2018-08-19 14:22 | NUR ---
PT'S BROTHER RAQUEL GUILLEN CALLED TO GIVE UPDATE. NO ANSWER. MESSAGED LEFT.
[2018-08-19 16:57] LABS: BF RBC 2406 /mm3; TOTAL CELL COUNT 519 /mm3
[2018-08-19 17:26] LABS: CLARITY SLIGHTLY HAZY; TOTAL VOLUME 2450 ml
[2018-08-19 17:43] LABS: BF LYMPHOCYTES 83 %; BF POLYS 1 %; BF TISSUE 16 /100 WBC; SOURCE THORACENTESIS
--- NOTE | 2018-08-19 18:37 | NUR ---
PT DROWSY. PT ABLE TO STATE NAME, YEAR, LOCATION. PT ON LEVOPHED, TITRATED PER PROTOCOL. DOBUTAMIN GTT PER CARDIOLOGY ORDERS. THORACENTESIS 2460 OUT.
--- NOTE | 2018-08-19 18:56 | NUR ---
PT WORE BIPAP FROM 4752-6778. PT 100 % ON 6LNC.
[2018-08-20] VITALS (47 sets, daily range): BP systolic 83–144; BP diastolic 27–76
--- NOTE | 2018-08-20 00:42 | NUR ---
AT 1155H PT COMPLAIN OF SOB AFTER BM AND PUT BACK TO BIPAP.PT TOLERATED THE BIPAP.
--- NOTE | 2018-08-20 02:48 | NUR ---
AT 0200H, PT BACK TO NC 2LPM AND WELL TOLERATED.
[2018-08-20 04:43] LABS: HEMATOCRIT 23.9 % (42.0-52.0); HEMOGLOBIN 7.8 gm/dL (14.0-18.0); MCH 26.2 pg (26.0-34.0); MCHC 32.5 g/dL (28.0-37.0); MCV 80.7 fL (80.0-100.0); MPV 7.4 fl. (7.2-11.1); NUCLEATED RBCS 0 /100WBC; PLATELET COUNT* 235 thou/uL (150-400); RBC 2.97 mil/uL (4.50-6.00); RDW-CV 17.3 % (10.5-14.5); WBC 10.1 thou/uL (4.0-11.0)
[2018-08-20 05:29] LABS: CALCIUM 7.4 mg/dL (8.5-10.1); CREATININE 3.5 mg/dL (0.6-1.3); POTASSIUM 4.9 mmol/L (3.5-5.1)
[2018-08-20 06:18] LABS: ABSOLUTE BASOPHILS 0.2 thou/uL (0.0-0.2); ABSOLUTE EOSINOPHILS 0.4 thou/uL (0.0-0.7); ABSOLUTE LYMPHOCYTES 0.5 thou/uL (0.8-5.3); ABSOLUTE MONOCYTES 0.8 thou/uL (0.0-1.2); ABSOLUTE NEUTROPHILS 8.2 thou/uL (1.6-8.1); METAMYELOCYTES 1 %; MYELOCYTES 1 %
[2018-08-20 06:19] LABS: ANISOCYTOSIS 1+; MICROCYTES 2+; PLATELET ESTIMATE ADEQUATE
[2018-08-20 06:20] LABS: HYPOCHROMASIA 2+
--- NOTE | 2018-08-20 06:27 | NUR ---
LEVOPHED 4MIC/MIN MAINTAINED. BP IS STABLE. NO RESPIRATORY DISRESS NOTED AFTER 0200H.
[2018-08-20 09:12] LABS: BODY FLUID AMYLASE 25 U/L (()); BODY FLUID LDH 99 IU/L (()); BODY FLUID PROTEIN 2.6 g/dL (())
--- NOTE | 2018-08-20 12:04 | NUR ---
PT TRANSFERRED TO ICU YESTERDAY. PT ALERT AND ORIENTED. HE SAID HE IS SCHEDULED FOR A BKA ON SUNDAY. HE SAID HIS IS CURRENTLY AT THE [facility] FOR SNF, HE WOULD LIKE TO GO THERE FOR SNF ALSO SO THEY COULD BE TOGETHER. CASE MGT WILL CONTINUE TO FOLLOW.
[2018-08-20 14:06] LABS: BODY FLUID PH 7.2 (Not Estab.)
--- NOTE | 2018-08-20 18:43 | NUR ---
PATIENT PROGRESSED WELL TOWARDS GOALS TODAY. WEANED OFF LEVOPHED AT 11AM TODAY AND TOELRATING WELL. PATIENT HAS BEEN VERY UNCOMFORTABLE THROUGHOUT SHIFT, ASKING TO DANGLE FEET OFF BED AND SIT UP, ATTEMPTED TO REPOSITON, EDUCATED PATIENT THAT HE CANNOT DANGLE FEET PER DR STAPLETON. PATIENT UPSET BUT UNDERSTANDS. PAIN MEDICINE GIVEN FOR BACK AND FOOT PAIN. RIGHT BKA SCHEDULED FOR SUNDAY. BED IN LOWEST POSITON, PUT BACK ON BIPAP FOR DIFFICULTY BREATHING TOWARDS END OF SHIFT. CALL LIGHT IN REACH.
[2018-08-21] VITALS (54 sets, daily range): BP systolic 75–201; BP diastolic 15–79
[2018-08-21 04:48] LABS: ALBUMIN 1.4 g/dL (3.4-5.0); CREATININE 3.7 mg/dL (0.6-1.3); POTASSIUM 5.3 mmol/L (3.5-5.1); TOTAL BILIRUBIN 0.3 mg/dL (<0.1-1.0)
--- NOTE | 2018-08-21 05:54 | NUR ---
AFEBRILE, VITALS STABLE THROUGH MOST OF THE NIGHT. LEVOPHED GTT STARTED PER PROTOCOL AT 0340 FOR MAP>60. HR 60s-70s WITH DOBUTAMINE GTT THROUGH THE NIGHT. PATIENT VERY ANXIOUS, WANTS TO DANGLE HIS LEGS OVER THE BED. KEPT ON SAYING HE "CAN'T DO THIS ANYMORE". ATIVAN X2 WITH COMPLETE RELIEF. MORPHINE X1 FOR PAIN. PATIENT ABLE TO SLEEP THROUGH MOST OF THE NIGHT FOLLOWING ANXIOLYTIC. NO BM THIS SHIFT, UOP 125 CC. Q2 TURNS FOR SKIN INTEGRITY. CALL LIGHT WITHIN REACH.
--- NOTE | 2018-08-21 06:44 | NUR ---
DR. THORNE CALLED TO CHECK IF PATIENT WOULD BE WILLING TO HAVE HIS SURGERY MOVED TO THIS MORNING. PATIENT AGREES. DR. THORNE UPDATED ON PATIENT STATUS. REPORTS HE WILL BOOK AN OR AND HAVE HIM PICKED AROUND [phone]. SON, DEVYN, CALLED TO LET HIM KNOW OF THIS.
--- NOTE | 2018-08-21 06:57 | NUR ---
2 UNITS OF BLOOD ORDERED PER DR. THORNE'S REQUEST TO BE PREPARED AND HELD FOR SURGERY. ORDERED AND LAB NOTIFIED OF STAT ORDER.
[2018-08-21 07:30] LABS: ABSOLUTE EOSINOPHILS 0.3 thou/uL (0.0-0.7); ABSOLUTE LYMPHOCYTES 0.9 thou/uL (0.8-5.3); ABSOLUTE MONOCYTES 0.9 thou/uL (0.0-1.2); ABSOLUTE NEUTROPHILS 9.3 thou/uL (1.6-8.1); BASOPHILS 0.4 %; EOSINOPHILS 2.7 %; HEMOGLOBIN 7.4 gm/dL (14.0-18.0); LYMPHOCYTES 8.1 %; MCH 25.9 pg (26.0-34.0); MCV 81.1 fL (80.0-100.0); MONOCYTES 7.7 %; MPV 7.8 fl. (7.2-11.1); NUCLEATED RBCS 0 /100WBC; PLATELET COUNT* 237 thou/uL (150-400); POLYS 81.1 %; RBC 2.84 mil/uL (4.50-6.00); RDW-CV 17.5 % (10.5-14.5); WBC 11.5 thou/uL (4.0-11.0)
[2018-08-21 11:43] LABS: BE -1.3 mmol/L (-2 to +3); PCO2 36.2 mmHg (35.0-45.0)
[2018-08-21 11:46] LABS: PO2 131.6 mmHg (75.0-100.0)
--- NOTE | 2018-08-21 13:09 | CON ---
[address] [address] CONSULTATION Name: GUILLENSEEMA Izquierdo Room: [address] IN M.R.#: [id number] Admission: 08/13/18 Attend Phys: Kamar Wetzel MD Discharge: Date of : 52 Report #: [id number] THIS REPORT FOR: //name// CC: Adalberto Haines Physician staff Kamar CHAMPAGNE DATE OF SERVICE: 08/19/2018 REASON FOR EVALUATION: Acute respiratory failure, the patient has severe hypoxemia, abnormal chest x-ray, bilateral effusion. REFERRING PHYSICIAN: Dr. Heath. HISTORY OF PRESENT ILLNESS: Chart reviewed, discussed with Dr. Heath, student Whitney as well as his nurse. He is a 68-year-old gentleman with known history of diabetes diagnosed in the 80s, peripheral neuropathy, vasculopathy, coronary artery disease, defibrillator, known to have congestive heart failure with systolic heart failure with ejection fraction of 25%. He came in with worsening lower extremity wounds, had multiple toe amputations. Since admission, had diabetic foot ulcers, had angioplasty yesterday, had gangrenous extremities. Since yesterday, the patient is having progressive shortness of breath, progressive hypoxemia, currently on a nonrebreather. He is on 15 liters, we do not have blood gas. He is arousable, following commands, but encephalopathic. Per nursing staff and his primary team, he has been more lethargic, had minimal cough. No chest pain. The chest x-ray, which I have reviewed, showed worsening bilateral effusion, bilateral infiltrate and on admission had right effusion. As above, known to have acute systolic heart failure, poorly controlled diabetes, has acute kidney injury, which is worsening. Had debridement of bilateral foot wound per surgery including tendon and fascia. ALLERGIES: Denies. HOME MEDICATIONS: Include insulin, Lasix, Coreg. PAST MEDICAL HISTORY: As above, includes diabetic foot, diabetes, poorly controlled; peripheral vascular disease, coronary artery disease, severe congestive heart failure, systolic with ejection fraction of 25%. SOCIAL HISTORY: Chews tobacco, previous history of alcohol. FAMILY HISTORY: [place] [address] CONSULTATION Name: SEEMA GUILLEN Room: [address] IN [facility]#: [id number] Admission: 08/13/18 Attend Phys: Kamar Wetzel MD Discharge: Date of : 51 Report #: [id number] REVIEW OF SYSTEMS: Not obtainable. The patient is lethargic; however, a 14-point review of system from reviewing the chart, discussing with the staff and his nurse, has progressive shortness of breath, minimal cough. No chest pain. Has lower extremity wounds, post debridement. Has intermittent claudication. PHYSICAL EXAMINATION: GENERAL: The patient is encephalopathic, lethargic, arousable, following commands. He is on nonrebreather, oxygen saturation is adequate. VITAL SIGNS: Blood pressure 140/45. He is afebrile. Pulse is 61, respiratory rate is 20, temperature at this time is 36. HEAD AND NECK: Neck is supple. Oral mucosa clear. CHEST: Decreased breath sounds severely at the lower bases. CARDIOVASCULAR: Regular rhythm, normal S1, S2. ABDOMEN: Obese, nontender. EXTREMITIES: Had edema, which is severe. Currently has dressing; however, per history, has gangrenous wounds. PSYCHIATRIC: Unable to evaluate. LABORATORY DATA AND OTHER DATABASE: His white blood cell count is 11.6, currently stable; hemoglobin 8.7, required 1 unit of blood transfusion, has been running low since 08/14/2018. Platelet count 208. Chemistry, sodium, hyponatremia. Creatinine is 3.3, followed by nephrology, has developed acute kidney injury since admission. Natriuretic peptide on 08/19/2018, as expected 35,000. C-reactive protein severely elevated at 129. Prealbumin is 6.6. Albumin 1.5. ASSESSMENT AND PLAN: The patient is a 68-year-old gentleman, currently having acute respiratory failure. Chest x-ray reviewed, has bilateral effusion, bibasilar infiltrate. He has acute kidney injury as well, suspect he has severe sepsis, may be going into septic shock and source is likely his leg wound with methicillin-resistant Staphylococcus aureus. Cannot exclude pneumonia, cannot exclude a complicated effusion. At this time, with his progressive multiorgan dysfunction, recommend ICU care. Discussed with Dr. Heath who agrees. Recommend to switch his antibiotics to Zyvox as daptomycin does not have adequate lung penetration. When transferred to the ICU, recommend to start pressors with Levophed. Recommend to start BiPAP with history of congestive heart failure. Recommend thoracentesis and to drain up to 1/2 liter, send pleural fluid evaluation of complicated effusion, empyema. [address] [address] CONSULTATION Name: SEEMA GUILLEN Room: M.002-P ADM IN M.R.#: [id number] Admission: 08/13/18 Attend Phys: Kamar Wetzel MD Discharge: Date of : 51 Report #: [id number] Likely, his uncontrolled sepsis is related to inadequate source control. The patient may need further amputation. May need limited echo to evaluate cardiac function. We will defer to cardiology who has been consulted. He has multiorgan failure, severe sepsis. We will obtain lactic acid. Monitor labs. The patient remains very critical. Critical care time taking care of the patient, discussing with staff was 76 minutes. <ELECTRONICALLY SIGNED> By: Jyotsna Kumar MD 08/21/18 1309 1235 0248Achelo Kumar MD /nt
[2018-08-21 17:42] LABS: SOURCE THORACENTESIS
--- NOTE | 2018-08-21 19:36 | NUR ---
PT ASSESSMENT CHARTED. PT'S RESPIRATORY STATUS AT BEGINNING OF SHIFT WAS DECREASED. PT UNAROUSABLE AND VERY LETHARGIC. BIPAP PLACED BACK ON PATIENT BRIEFLY BUT UNABLE TO TOLERATE AND ONLY HOLDING O2 SATURATION AROUND 85%. CHEST XRAY OBTAINED, ABG WAS UNABLE TO BE DRAWN BY RT. PULMONARY NOTIFIED. ORDER RECEIVED TO INTUBATE. PT ATTEMPTED TO BE INTUBATED WITH THE 4TH TIME BEING SUCCESSFUL. PT SEDATED PER ORDERS. LEVOPHED AND DOPAMINE MAXED DURING INTUBATION AND TITRATED OFF SHORTLY AFTER INTUBATION. LEVOPHED AND DOPAMINE RESTARTED LATER THIS AFTERNOON WELL LASIX DRIP. DOBUTAMINE INCREASED PER CARDIOLOGY. VASCULAR PAGED AND NOTIFIED ABOUT PATIENT CONDITION/INTUBATION. THEY WERE UNSURE AT THIS TIME IF THEY WOULD BE ATTEMPTING SURGERY IN THE MORNING. SON (DEVYN) NOTIFIED ABOUT SURGERY NOT HAPPENING TODAY AND THAT PATIENT WAS INTUBATED. SON STATED THAT HE LIVES 3.5 HOURS AWAY AND WOULD NOT BE ABLE TO COME. HE ALSO STATED THAT THE PATIENT'S MAY BE IN THE HOSPITAL WELL AND WAS UNABLE TO GIVE CONTACT INFORMATION FOR HER. LAND DEVELOPER PAGED REGARDING PATIENT BEING MAXED ON LEVOPHED AND CLOSE TO MAX ON DOPAMINE. NO NEW ORDERS RECEIVED. PT'S HR ALSO ELEVATED. NO FEVERS THROUGHOUT THE DAY.
[2018-08-22] VITALS (109 sets, daily range): BP systolic 74–178; BP diastolic 23–75
--- NOTE | 2018-08-22 02:37 | NUR ---
REPORT RECEIVED FROM OFF GOING SHIFT AND CARE ASSUMMED. PT REMAINS ON VENTILATOR.. ETT 7.5 25@@LIP. SETTINGS AC 16 TV 450, PEEP5 AND FIO2 60%. OGT 77 CM AT LIP AND CONNECTED TO LIS. TUBE NOT DRAINING WELL AND IRRIGATED WITH 50CC WATER. PT CONTINUE TO HAVE TROUBLE MAINTAINING SATS AND BP. DR LANDON NOTIFIED AND NEW ORDERS RECEIVED X2. MONITORS INTACT AND ALARMS SET SEE EMAR FOR MEDICATIONS AND MED TITRATION DOCUMENTATION FOR RATE ADJUSTMENTS. PT HAS VERY SMALL AMOUNT OF URINE OUTPUT. WILL CONTINUE TO MONITOR. DR LANDON IS AWARE.
[2018-08-22 04:15] LABS: ALBUMIN 1.3 g/dL (3.4-5.0); CALCIUM 7.1 mg/dL (8.5-10.1); POTASSIUM 4.7 mmol/L (3.5-5.1); TOTAL BILIRUBIN 0.5 mg/dL (<0.1-1.0); TOTAL PROTEIN 6.1 g/dL (6.4-8.2)
--- NOTE | 2018-08-22 05:43 | NUR ---
PATIENT ON VENT SUPPORT. SEDATION TITRATED PER PROTOCOL, PROPOFOL TURNED OFF AT 0030, FENTANYL AT 40MCG/HR. ON SUPPORT OF LEVO AT 30MCG/MIN, DOPAMINE AT 20MCG/KH/HR AND DOBUTAMINE AT 10MCG/KG/HR. BP SOFT. SPONGE BATH PROVIDED. LT LEG WOUND DRESSING DONE PER ORDER.
[2018-08-22 06:01] LABS: BE -11.7 mmol/L (-2 to +3); PO2 73.2 mmHg (75.0-100.0)
[2018-08-22 06:03] LABS: PCO2 71.2 mmHg (35.0-45.0); pH 7.048 (7.340-7.450)
[2018-08-22 07:38] LABS: HEMATOCRIT 28.6 % (42.0-52.0); HEMOGLOBIN 8.8 gm/dL (14.0-18.0); MCH 25.3 pg (26.0-34.0); MCHC 30.7 g/dL (28.0-37.0); MCV 82.3 fL (80.0-100.0); MPV 7.5 fl. (7.2-11.1); NUCLEATED RBCS 0 /100WBC; RBC 3.47 mil/uL (4.50-6.00); RDW-CV 17.1 % (10.5-14.5)
[2018-08-22 07:40] LABS: PLATELET COUNT* 339 thou/uL (150-400)
[2018-08-22 07:42] LABS: WBC 43.3 thou/uL (4.0-11.0)
[2018-08-22 07:53] LABS: BE -8.7 mmol/L (-2 to +3)
[2018-08-22 07:57] LABS: PCO2 51.5 mmHg (35.0-45.0); pH 7.195 (7.340-7.450)
[2018-08-22 08:47] LABS: ABSOLUTE LYMPHOCYTES 1.3 thou/uL (0.8-5.3); METAMYELOCYTES 1 %; MYELOCYTES 1 %
[2018-08-22 08:48] LABS: ANISOCYTOSIS 2+; PLATELET ESTIMATE ADEQUATE
[2018-08-22 11:01] LABS: ABSOLUTE BASOPHILS 0.1 thou/uL (0.0-0.2); ABSOLUTE EOSINOPHILS 0.1 thou/uL (0.0-0.7); ABSOLUTE LYMPHOCYTES 1.1 thou/uL (0.8-5.3); ABSOLUTE MONOCYTES 1.1 thou/uL (0.0-1.2); ABSOLUTE NEUTROPHILS 35.8 thou/uL (1.6-8.1); BASOPHILS 0.3 %; EOSINOPHILS 0.2 %; HEMATOCRIT 26.1 % (42.0-52.0); HEMOGLOBIN 8.3 gm/dL (14.0-18.0); LYMPHOCYTES 2.8 %; MCH 25.6 pg (26.0-34.0); MCHC 31.8 g/dL (28.0-37.0); MCV 80.2 fL (80.0-100.0); MPV 7.4 fl. (7.2-11.1); NUCLEATED RBCS 0 /100WBC; POLYS 93.7 %; RBC 3.25 mil/uL (4.50-6.00); RDW-CV 17.2 % (10.5-14.5); WBC 38.3 thou/uL (4.0-11.0)
[2018-08-22 11:04] LABS: PLATELET COUNT* 264 thou/uL (150-400)
[2018-08-22 11:15] LABS: CALCIUM 6.8 mg/dL (8.5-10.1); POTASSIUM 5.1 mmol/L (3.5-5.1)
[2018-08-22 14:27] LABS: BE -6.4 mmol/L (-2 to +3); PCO2 47.6 mmHg (35.0-45.0); PO2 66.5 mmHg (75.0-100.0)
[2018-08-22 14:29] LABS: pH 7.253 (7.340-7.450)
[2018-08-22 17:24] LABS: URINE BILIRUBIN NEGATIVE (Negative); URINE BLOOD NEGATIVE (Negative); URINE CLARITY CLEAR; URINE COLOR YELLOW; URINE GLUCOSE-RANDOM NEGATIVE (Negative); URINE KETONES TRACE (Negative); URINE LEUKOCYTES 1+ (Negative); URINE NITRITE NEGATIVE (Negative); URINE PROTEIN 1+ (Negative); URINE SPECIFIC GRAVITY 1.025 (1.005-1.030); URINE UROBILINOGEN 0.2 E.U./dl (0.2-1.0)
[2018-08-22 17:33] LABS: URINE WBC 6-15 Few /HPF (0-5); YEAST Present (None Seen)
[2018-08-22 17:34] LABS: BACTERIA 1-9 Few /HPF (None Seen)
[2018-08-22 17:39] LABS: CRYSTALS None Seen /LPF (None Seen); MUCUS None Seen strn/LPF (None Seen); SQUAMOUS NONE SEEN /LPF (0-3)
[2018-08-22 17:40] LABS: HYALINE CASTS 0-3 Few /LPF (None Seen); URINE RBC None Seen /HPF (0-2)
--- NOTE | 2018-08-22 17:42 | NUR ---
PT CARE ASSUMED AFTER REPORT. ASSESSMENTS COMPLETE. V PACED ON MONITOR. BP 70'S/30'S THIS AM AFTER DOPAMINE D/C'D PER NICHOL HENDERSON. VASOPRESSEN, EPI, AND NUNU STARTED AND TITRATED. PT BP BETTER THIS PM. EPI AND NUNU TITRATED OFF AT THIS TIME. D5 WITH BICARB INFUSING. LANDIN TO DD WITH LITTLE OUTPUT. UA SENT TO LAB. PT TO POSSIBLY HAVE DIALYSIS, PER DR RONDON, IN THE AM. PT FAMILY NOTIFIED OF HIS CONDITION AND DAUGHTER/GRANDSON AND 2 OTHER FAMILY MEMBERS HERE TODAY. SON NOTIFIED AND STATES THAT HE WILL COME [place]. PT SEDATION TITRATED UP PRN FOR PT COMFORT. PT PROGRESSING TOWARDS SOME GOALS.
[2018-08-23] VITALS (69 sets, daily range): BP systolic 73–183; BP diastolic 46–89
[2018-08-23 04:57] LABS: HEMATOCRIT 22.6 % (42.0-52.0); HEMOGLOBIN 7.3 gm/dL (14.0-18.0); MCH 25.6 pg (26.0-34.0); MCHC 32.4 g/dL (28.0-37.0); MPV 7.6 fl. (7.2-11.1); RBC 2.86 mil/uL (4.50-6.00); RDW-CV 17.5 % (10.5-14.5); WBC 37.3 thou/uL (4.0-11.0)
[2018-08-23 05:37] LABS: ALBUMIN 1.8 g/dL (3.4-5.0); CREATININE 3.4 mg/dL (0.6-1.3); TOTAL BILIRUBIN 0.7 mg/dL (<0.1-1.0); TOTAL PROTEIN 5.2 g/dL (6.4-8.2)
--- NOTE | 2018-08-23 07:08 | NUR ---
PATIENT ON VENT SUPPORT, SEDATED WITH FENTANYL AT 100MCG/HR. ADMINISTERED ATIVAN 2MG IV TWICE THIS SHIFT FOR AGITATION. SPONGE BATH GIVEN. DAUGHTER TAVO UPDATED ABOUT HIS CONDITION. LEVOPHED TITRATED PER PROTOCOL.
[2018-08-23 10:31] LABS: BE -0.8 mmol/L (-2 to +3); PCO2 42.5 mmHg (35.0-45.0); pH 7.376 (7.340-7.450)
[2018-08-23 10:33] LABS: PO2 169.5 mmHg (75.0-100.0)
--- NOTE | 2018-08-23 14:41 | PATH ---
[address] [address] PATHOLOGY RPT PROCEDURE Name: SEEMA GUILLEN Room: [address] IN R#: [id number] Admission: 08/13/18 Date of : 52 Discharge: Report #: [id number] Path Case #: [id number] Note [facility] Accession Number: [id number] TESTS RESULT FLAG UNITS REF RANGE LAB Clinician Provided Cytology Information No. of containers..01 Other (Miscellaneous) Source: RIGHT PLEURAL FLUID DIAGNOSIS: 02 RIGHT PLEURAL FLUID NEGATIVE FOR MALIGNANT CELLS. FEW MESOTHELIAL CELLS, RBCs AND INFLAMMATORY CELLS. THIS INTERPRETATION INCLUDES EVALUATION OF A CELL BLOCK. Signed out by: 02 Santiago Blakely MD, Pathologist NPI- [id number] Performed by: 01 Merary Cao, Police And Fire Dispatcher ([facility]) Gross description: 01 90ML, YELLOW, HAZY /LCS FLAG LEGEND: L-Low Normal,H-High Normal,LL-Alert Low,HH-Alert High <-Panic Low,>-Panic High,A-Abnormal,AA-Critical Abnormal Performed at: [address] [place] [address] Trace Fox MD, [address] [place] [address] [facility], [place] [address] Santiago Blakely MD, Specimen Comment: A courtesy copy of this report has been sent to Specimen Comment: [phone], , . Specimen Comment: Report sent to DR MORENO / DR CHAMPAGNE Specimen Comment: Report sent to Specimen Comment: A duplicate report has been generated due to demographic updates. Performed at: [address], [place], [place] [id number] MD Trace Fox MD Phone: [phone]
--- NOTE | 2018-08-23 17:40 | NUR ---
PT TO SURGERY WITH SURGERY NURSE STAFF.
--- NOTE | 2018-08-23 18:23 | NUR ---
PT BACK FROM SURGERY. R FOOT AMPUTATED. DRESSING TO SURGICAL SITE C/D/I. PROPPED UP ON WEDGES AND A PILLOW. VSS. LEVOPHED, D5 WITH BICARB, AND FENTANYL INFUSING. LANDIN TO DD. PT REMAINS SEDATED ON THE VENT. NO S/S OF PAIN OBSERVED.
[2018-08-24] VITALS (21 sets, daily range): BP systolic 76–148; BP diastolic 26–72
--- NOTE | 2018-08-24 06:05 | NUR ---
patient progressing towards goals. remains on levo titrated down to 1 mcg tolerating well. continues on dobutamine per cardiology orders. V-paced on monitor. urine output 1300ml. right foot amputation dressing had red, serosanguineous draniage on katherine wrap and observerd some on pillow. reinforced dressing added abd and another layer of guaze. both legs have remained elevated. pt received full bed bath with linen change. q2h turns and oral care. will continue to monitor.
[2018-08-24 06:51] LABS: ABSOLUTE BASOPHILS 0.1 thou/uL (0.0-0.2); ABSOLUTE LYMPHOCYTES 0.6 thou/uL (0.8-5.3); ABSOLUTE MONOCYTES 0.5 thou/uL (0.0-1.2); ABSOLUTE NEUTROPHILS 25.5 thou/uL (1.6-8.1); BASOPHILS 0.2 %; HEMATOCRIT 20.9 % (42.0-52.0); LYMPHOCYTES 2.3 %; MCH 25.4 pg (26.0-34.0); MCHC 32.7 g/dL (28.0-37.0); MCV 77.6 fL (80.0-100.0); MONOCYTES 1.9 %; MPV 7.2 fl. (7.2-11.1); NUCLEATED RBCS 0 /100WBC; PLATELET COUNT* 175 thou/uL (150-400); POLYS 95.6 %; RBC 2.69 mil/uL (4.50-6.00); RDW-CV 18.1 % (10.5-14.5); WBC 26.7 thou/uL (4.0-11.0)
[2018-08-24 07:09] LABS: PREALBUMIN 7.1 mg/dL (18.0-35.7)
[2018-08-24 07:12] LABS: HEMOGLOBIN 6.8 gm/dL (14.0-18.0)
[2018-08-24 07:18] LABS: ALKALINE PHOSPHATASE 89 U/L (46-116); ANION GAP 10 mmol/L (7-16); BUN 47 mg/dL (7-18); CALCIUM 6.8 mg/dL (8.5-10.1); CHLORIDE 89 mmol/L (98-107); CO2 27 mmol/L (21-32); CREATININE 3.4 mg/dL (0.6-1.3); GLUCOSE 198 mg/dL (70-99); POTASSIUM 4.7 mmol/L (3.5-5.1); SGOT 11 U/L (15-37); SGPT 13 U/L (30-65); SODIUM 126 mmol/L (136-145); TOTAL BILIRUBIN 0.6 mg/dL (<0.1-1.0); TOTAL PROTEIN 5.4 g/dL (6.4-8.2)
[2018-08-24 07:20] LABS: NT-PRO BRAIN NAT PEPTIDE > 35000 pg/mL (<300)
[2018-08-24 07:53] LABS: CALCIUM 6.7 mg/dL (8.5-10.1); CREATININE 3.3 mg/dL (0.6-1.3); MAGNESIUM 1.3 mg/dL (1.8-2.4); PHOSPHORUS* 6.3 mg/dL (2.5-4.9); POTASSIUM 4.6 mmol/L (3.5-5.1)
[2018-08-24 14:19] LABS: HEMATOCRIT 21.7 % (42.0-52.0); HEMOGLOBIN 7.3 gm/dL (14.0-18.0)
--- NOTE | 2018-08-24 14:39 | NUR ---
Okysrolc-tu-ocy came in from out of town. Is trying to get DPOA, states has financial sales advisor and working on paperwork as her mom has DPOA now. Phone number is [phone], back up number [phone].
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
[2018-08-25] VITALS (79 sets, daily range): BP systolic 55–219; BP diastolic 37–89
--- NOTE | 2018-08-25 06:02 | NUR ---
REPORT RECEIVED FROM OFF GOING SHIFT AND CARE ASSUMMED. PT REMAINS IN ISOLATION (CONTACT) FOR MRSA. PT REMAINS ON VENTILATOR ETT 7.5 25 AT LIP VENT SETTINGS FIO2 70%, PEEP 8, TV 550 AC 18. PT HAD AN EPISODE OF DESATING AND O2 INCREASED TO 100%. CURRENTLY FIO2 IS AT 80%. DRESSING TO LEFT FOOT AND HEEL CHANGED. DRESSIGN TO RIGHT LEG INTACT. MONITORS INTACT WITH ALARMS SET. LANDIN INTACT AND PATENT DRIANING YELLOW URINE. GLUCERNA TUBE FEEDING INFUSING AT 40CC/HR GOAL 70CC/HR VIA OGT . RESIDUALS THIS SHIFT 10,10,10. WILL CONTINUE TO MONITOR. ABDOMIN IS FIRM AND DISTENDED. WILL CONTINUE TO MONITOR
[2018-08-25 07:51] LABS: HEMATOCRIT 23.9 % (42.0-52.0); HEMOGLOBIN 7.9 gm/dL (14.0-18.0); MCH 26.2 pg (26.0-34.0); MCHC 33.2 g/dL (28.0-37.0); MCV 78.9 fL (80.0-100.0); MPV 7.9 fl. (7.2-11.1); NUCLEATED RBCS 0 /100WBC; PLATELET COUNT* 161 thou/uL (150-400); RBC 3.03 mil/uL (4.50-6.00); RDW-CV 17.7 % (10.5-14.5); WBC 21.8 thou/uL (4.0-11.0)
[2018-08-25 08:01] LABS: ALBUMIN 2.5 g/dL (3.4-5.0); CREATININE 3.1 mg/dL (0.6-1.3); POTASSIUM 4.6 mmol/L (3.5-5.1); TOTAL BILIRUBIN 1.1 mg/dL (<0.1-1.0); TOTAL PROTEIN 5.4 g/dL (6.4-8.2)
[2018-08-25 09:00] LABS: ABSOLUTE LYMPHOCYTES 1.1 thou/uL (0.8-5.3); ABSOLUTE MONOCYTES 0.2 thou/uL (0.0-1.2); ABSOLUTE NEUTROPHILS 20.5 thou/uL (1.6-8.1)
[2018-08-25 09:01] LABS: ANISOCYTOSIS 1+; MICROCYTES 1+; PLATELET ESTIMATE ADEQUATE
[2018-08-25 09:02] LABS: HYPOCHROMASIA 1+
--- NOTE | 2018-08-25 14:19 | NUR ---
[id number] PT TURNED TO LEFT SIDE, (RIGHT LUNG UP), PT DID NOT TOLERATE POSITION, BLOOD PRESSURE TRENDING DOWN, PEAK PRESSURES IN 40'S, A/V PACED ON MONITOR. DISCUSSED FINDINGS WITH DR. KEARNEY, ORDERS TO NOT TURN PT AT THIS TIME, TOO UNSTABLE, DISCUSSED COCCYX WOUNDS, DR RESPONSE, "PRIORITY RIGHT NOW IS PT RESPIRATORY STATUS, DO NOT TURN RIGHT NOW."
--- NOTE | 2018-08-25 14:24 | NUR ---
[id number] PT SUCTIONED, LARGE PLUG REMOVED, BP 227/141, VPACED, LEVOPHED OFF, ORDERS NOT TO TURN PT. WILL MONITOR CLOSELY.
--- NOTE | 2018-08-25 18:24 | NUR ---
UNABLE TO PICTURE COCCYX TODAY, ORDERS TO NOT TURN PATIENT.
[2018-08-26] VITALS (45 sets, daily range): BP systolic 99–141; BP diastolic 47–64
[2018-08-26 04:20] LABS: ABSOLUTE LYMPHOCYTES 0.8 thou/uL (0.8-5.3); ABSOLUTE MONOCYTES 0.4 thou/uL (0.0-1.2); ABSOLUTE NEUTROPHILS 17.4 thou/uL (1.6-8.1); BASOPHILS 0.2 %; HEMATOCRIT 25.8 % (42.0-52.0); HEMOGLOBIN 8.4 gm/dL (14.0-18.0); LYMPHOCYTES 4.1 %; MCH 25.7 pg (26.0-34.0); MCHC 32.7 g/dL (28.0-37.0); MCV 78.8 fL (80.0-100.0); MONOCYTES 2.2 %; MPV 7.9 fl. (7.2-11.1); NUCLEATED RBCS 0 /100WBC; PLATELET COUNT* 149 thou/uL (150-400); POLYS 93.5 %; RBC 3.27 mil/uL (4.50-6.00); RDW-CV 17.8 % (10.5-14.5); WBC 18.7 thou/uL (4.0-11.0)
[2018-08-26 04:35] LABS: ALBUMIN 2.4 g/dL (3.4-5.0); CALCIUM 7.2 mg/dL (8.5-10.1); CREATININE 2.8 mg/dL (0.6-1.3); TOTAL BILIRUBIN 0.8 mg/dL (<0.1-1.0); TOTAL PROTEIN 5.5 g/dL (6.4-8.2)
[2018-08-26 04:57] LABS: POTASSIUM 3.6 mmol/L (3.5-5.1)
--- NOTE | 2018-08-26 07:19 | NUR ---
PATIENT UNDER VENT SUPPORT, SETTINGS UNCHANGED, TOLERATED WELL OVERNIGHT. SEDATION WITH FENTANYL AND PRECEDEX, TITRATED PER PROTOCOL. VSS. NO ANY IONOTROPIC SUPPORT. LEFT LEG WOUND DRESSED PER ORDERS. COMPLETE BED BATH GIVEN AND LINENS CHANGED. WOUND AT THE SACRUM DRESSED AND PHOTOGRAPHS TAKEN, ATTAHCED TO THE CHART. OG FEEDING CONTD AT 50 MLS/HR, RESIDUE 0/5/0 ML. LASIX DRIP CONTD AT 5.5 MLS/HR. NO BM THIS SHIFT.
--- NOTE | 2018-08-26 10:15 | NUR ---
PT HAD GUILLOTINE AMPUTATION OF RIGHT LEG ON 08/23. REMAINS ON VENT. NO FAMILY HERE AT THIS TIME BUT ACCORDING TO NURSING, FAMILY MEMBERS WERE HERE OVER THE WEEKEND.
--- NOTE | 2018-08-26 11:53 | OP ---
[address] [address] OPERATIVE REPORT Name: SEEMA GUILLEN Room: [address] IN M.R.#: [id number] Admission: 08/13/18 Attend Phys: Kamar Wetzel MD Discharge: Date of : 52 Report #: [id number] THIS REPORT FOR: //name// CC: Adalberto Haines Physician staff Kamar DOZIERURI DATE OF SERVICE: 08/23/2018 PREOPERATIVE DIAGNOSES: 1. Sepsis. 2. Diabetic foot ulcer as possible source of sepsis. POSTOPERATIVE DIAGNOSES: 1. Sepsis. 2. Diabetic foot ulcer as possible source of sepsis. PROCEDURE: Right guillotine amputation emergent. SURGEON: Reji Smyth MD MUSHROOM SPAWN MAKER: Dr. Jung, resident year 2. COMPLICATIONS: None. ESTIMATED BLOOD LOSS: 100 mL. SPECIMEN: Includes right foot. ANESTHESIA: General. INDICATIONS FOR PROCEDURE: The patient is a 68-year-old white male who has a right diabetic foot wound. This was no longer salvageable per Dr. Torres with Podiatry. We were planning elective amputation earlier in the week; however, the patient was unable to consent due to altered mental status. He slowly became septic over the week and it was clear that his right foot may be the source of the sepsis. For this reason, we are proceeding with emergent amputation today. The patient is still unable to consent as he is intubated and sedated. We will proceed under emergent consent due to medical necessity. DESCRIPTION OF PROCEDURE: The patient was taken to the OR. He remained in his ICU bed as he was too unstable to transfer to the OR table. We prepped and draped his leg sterilely on the bed. Anesthesia was initiated as much as possible with his unstable status. We performed guillotine amputation using a combination of electrocautery and the bone saw. We ligated the anterior tibial, [place] [address] OPERATIVE REPORT Name: SEEMA GUILLEN Timbo Room: [address] IN [facility]#: [id number] Admission: 08/13/18 Attend Phys: Kamar Wetzel MD Discharge: Date of : 52 Report #: [id number] posterior tibial and peroneal arteries individually using silk suture ligature. We controlled bleeding as needed with electrocautery. I packed the open amputation site with Betadine-soaked Kerlix, covered it with ABDs, Kerlix wrap and Can wrap. The patient tolerated the procedure well, was taken intubated and sedated back to the ICU in critical condition. All needle and instrument counts were correct. <ELECTRONICALLY SIGNED> By: Mark King DO 08/26/18 1153 1812 [id number] Smyth MD /vicki
--- NOTE | 2018-08-26 11:53 | OP ---
[facility] [place] [address] OPERATIVE REPORT Name: SEEMA GUILLEN Room: [address] IN M.R.#: [id number] Admission: 08/13/18 Attend Phys: Kamar Wetzel MD Discharge: Date of : 52 Report #: [id number] THIS REPORT FOR: //name// CC: Adalberto Haines Physician staff Kamar CHAMPANGE DATE OF SERVICE: 08/19/2018 PREOPERATIVE DIAGNOSES: Peripheral vascular disease with ulcer, right lower extremity. POSTOPERATIVE DIAGNOSES: Peripheral vascular disease with ulcer, right lower extremity. SURGEON: Rasheed Richmond DO. WETLAND SCIENTIST: Karthik Jung, and JULIAN Damon. ANESTHESIA: Moderate sedation. ESTIMATED BLOOD LOSS: Minimal. PROCEDURES: 1. Ultrasound-guided access, left common femoral artery. 2. Aortogram with CO2. 3. Right lower extremity angiogram catheter position in third order with CO2. 4. Tibial angiogram with minimal contrast technique. 5. Anterior tibial artery angioplasty with Bard VascuTrak 3 x 100 and Bard Ultraverse 2 mm x 20. 6. Angiogram left lower extremity with CO2 contrast through retrograde sheath. ESTIMATED BLOOD LOSS Minimal. SPECIMEN: None. COMPLICATIONS: None. CONDITION: Stable. DISPOSITION: Floor. INDICATIONS FOR THE PROCEDURE AND CONSENT: The patient is a 68-year-old male with acute renal insufficiency, bilateral foot ulcers and peripheral vascular disease. He is unable to undergo CT angiogram due to contraindication to a [address] [address] OPERATIVE REPORT Name: SEEMA GUILLEN Room: [address] IN M.R.#: [id number] Admission: 08/13/18 Attend Phys: Kamar Wetzel MD Discharge: Date of : 52 Report #: [id number] significant contrast use. Recommendation for right lower extremity angiogram for limb salvage was made. Risks and benefits were discussed, infection, bleeding, need for additional procedures, renal failure and contrast nephropathy even from minimal contrast. The patient wished to proceed, was consented and scheduled. PROCEDURE IN DETAIL: After timeout was performed, the patient was placed in supine position with sterile prep and drape of the bilateral groins, bilateral thighs and lower abdomen. Ultrasound was utilized to identify the left common femoral artery and Seldinger technique used to place 6-St Lucian sheath. Glidewire Advantage and UF catheter were advanced into the infrarenal aorta and a CO2 aortogram was performed. This demonstrated widely patent bilateral renal arteries, aorta and bilateral common iliac and internal and external iliac vessels. I advanced the UF catheter and Glidewire Advantage into the right external iliac vessel. I then performed CO2 angiography of the bilateral thighs, which demonstrated bilateral patency of the common femoral, superficial femoral and profunda vessels. I attempted to take tibial angiography with CO2 as well and I was able to visualize that the anterior tibial artery did not feel well on the right side. I advanced the Glidewire Advantage and seeker catheter into the popliteal vessel and performed a limited contrast using 20% contrast injections of the tibial vessels. This demonstrated the peroneal and posterior tibial artery patent to the ankle with mild disease. The anterior tibial artery appeared to have severe tandem stenosis and near occlusion and reconstituted at the ankle level. I then systemically heparinized with 6000 units of heparin with intention to treat. The Glidewire Advantage and seeker catheter were able to advance into the anterior tibial vessel without difficulty. I was unable to pass the Glidewire Advantage beyond what appeared to be either a near occlusion or occlusion in the mid tibial vessel. I exchanged for an up and over 6-St Lucian sheath and then exchanged for an 0.014 Glidewire Advantage and advanced into the distal tibia with only mild difficulty. I then obtained the VascuTrak cutting balloon and was able to angioplasty the proximal tibial vessel with this. It was not able to be passed into the distal anterior tibial vessel. I obtained a 2 mm x 20 mm Ultraverse balloon and was able to pass this and do tandem inflations of the distal tibial vessel. Repeat angiography demonstrated an adequate radiographic result, without significant recoil and a patent tibial vessel. I did not feel additional intervention was prudent at this point. I was satisfied with the result and therefore, I retracted the sheath and wire into the left external iliac vessel and performed CO2 angiography of the left tibial region. This demonstrated a symmetric pattern as the right side, with patent posterior tibial and peroneal vessel and heavily diseased anterior tibial. It also appeared to be appropriate for Angio-Seal closure and a 6-St Lucian Angio-Seal was selected and deployed in sterile fashion. Pressure was held for [address] [place] [address] OPERATIVE REPORT Name: SEEMA GUILLEN Room: 002-P [facility] IN M.R.#: [id number] Admission: 08/13/18 Attend Phys: Kamar Wetzel MD Discharge: Date of : 52 Report #: [id number] hemostasis. The patient tolerated the procedure well. All lap, needle and instrument counts were correct. <ELECTRONICALLY SIGNED> By: Mark King DO 08/26/18 1153 1044 1136Rasheed Richmond DO /nt
--- NOTE | 2018-08-26 13:40 | NUR ---
PT FAILED WEANING TRIAL. BP 70/30. RT ALSO ADJUSTED O2 SETTING ON THE VENT TO INCREASE AT 60%.
--- NOTE | 2018-08-26 18:05 | NUR ---
PT CARE ASSUMED AFTER REPORT. ASSESSMENTS COMPLETE. V PACED ON MONITOR. LANDIN TO DD. PT SEDATED ON THE VENT. LOWER EXTREMITIES ELEVATED ON PILLOWS AND WEDGES. TUBE FEEDS THROUGH OG TUBE. NO S/S OF PAIN. NOT PROGRESSING TOWARDS GOALS.
[2018-08-27] VITALS (25 sets, daily range): BP systolic 66–145; BP diastolic 34–64
[2018-08-27 04:38] LABS: CALCIUM 7.3 mg/dL (8.5-10.1); CREATININE 2.9 mg/dL (0.6-1.3); MAGNESIUM 1.7 mg/dL (1.8-2.4); PHOSPHORUS* 6.1 mg/dL (2.5-4.9); POTASSIUM 3.5 mmol/L (3.5-5.1)
--- NOTE | 2018-08-27 06:30 | NUR ---
PATIENT REMAINS UNDER VENT SUPPORT, 02 SATS DOWN TO 87% AT 0500, PT SUCTIONED, REPOSITIONED ON LT SIDE AND FIO2 INCREASED TO 60% FROM 50%. 02 SATS GRADUALLY IMPROVED >92%. TOLERATING TUBE FEEDS, GLUCERNA AT 50 MLS/HR. NO BM THIS SHIFT. LT HEEL WOUND CLEANED PER PROTOCOL. SPONGE BATH GIVEN. PT HAD A LOW GRADE FEVER, TMAX 101.1, COOL FAN AND ICE PACKS APPLIED, TEMP DOWN TO 97 AT 0600.
[2018-08-27 10:21] LABS: HEMATOCRIT 27.6 % (42.0-52.0); HEMOGLOBIN 9.1 gm/dL (14.0-18.0); MCH 26.2 pg (26.0-34.0); MCHC 32.9 g/dL (28.0-37.0); MCV 79.6 fL (80.0-100.0); MPV 7.8 fl. (7.2-11.1); NUCLEATED RBCS 0 /100WBC; PLATELET COUNT* 119 thou/uL (150-400); RBC 3.46 mil/uL (4.50-6.00); WBC 25.9 thou/uL (4.0-11.0)
[2018-08-27 10:29] LABS: URINE BILIRUBIN NEGATIVE (Negative); URINE BLOOD TRACE (Negative); URINE CLARITY CLEAR; URINE COLOR YELLOW; URINE GLUCOSE-RANDOM NEGATIVE (Negative); URINE KETONES TRACE (Negative); URINE LEUKOCYTES-REFLEX 1+ (Negative); URINE NITRITE-REFLEX NEGATIVE (Negative); URINE PROTEIN NEGATIVE (Negative); URINE UROBILINOGEN 0.2 E.U./dl (0.2-1.0)
[2018-08-27 10:42] LABS: ABSOLUTE LYMPHOCYTES 0.8 thou/uL (0.8-5.3); ABSOLUTE MONOCYTES 0.8 thou/uL (0.0-1.2); ABSOLUTE NEUTROPHILS 24.3 thou/uL (1.6-8.1); PLATELET ESTIMATE DECREASED
[2018-08-27 10:43] LABS: ALBUMIN 1.9 g/dL (3.4-5.0); CALCIUM 7.1 mg/dL (8.5-10.1); POTASSIUM 3.7 mmol/L (3.5-5.1); TOTAL PROTEIN 5.1 g/dL (6.4-8.2); TOXIC GRANULATION 2+
[2018-08-27 10:44] LABS: TARGET CELLS 1+
[2018-08-27 10:45] LABS: HYPOCHROMASIA 2+; MICROCYTES 2+
[2018-08-27 10:59] LABS: SQUAMOUS NONE SEEN /LPF (0-3); URINE WBC-REFLEX 6-15 Few /HPF (0-5)
[2018-08-27 11:00] LABS: BACTERIA-REFLEX None Seen /HPF (None Seen); HYALINE CASTS >10 Many /LPF (None Seen); MUCUS 0-3 Light strn/LPF (None Seen); URINE RBC 0-2 Rare /HPF (0-2)
--- NOTE | 2018-08-27 11:00 | NUR ---
LENGTHY DISCUSSION WITH STEP-DAUGHTER REBECCA ([phone]). SHE SAID PT 'HAS BEEN A PART OF MY LIFE FOR 30 YEARS, HE IS MY ONLY DAD.' SHE SAID FOR A NUMBER OF YEARS SHE WAS EXTRANGED FROM HER MOTHER AND PATIENT 'DUE TO THEIR LIFESTYLE CHOICES, THEY DRINK A LOT.' SHE SAID SHE RECONNECTED WITH THEM ABOUT A YEAR AGO AND 'WE HAVE GOTTEN REALLY CLOSE AGAIN IN THE PAST YEAR.' SHE SAID SHE DOESN'T GET ALONG WITH SOME MEMBERS OF THE FAMILY, 'THEY ARE TRYING TO TAKE OVER AND MANAGE EVERYTHING, THEY DON'T KEEP ME IN THE LOOP. I JUST WANT TO MAKE SURE MY MOTHER AND FATHER ARE TAKEN CARE OF AND I DON'T THINK THEY WERE.' PT'S IS EITHER IN A RETIREMENT OR ALCOHOL TREATMENT, UNCLEAR FROM REBECCA'S DESCRIPTION. AT ONE POINT SHE SAID SHE IS TRYING TO GET HER MOTHER UP HERE TO SEE THE PATIENT, AND THEN SHE SAID SHE DIDN'T KNOW FOR SURE WHERE HER MOTHER WAS. SHE SAID SHE HADN'T SEEN PT OR HER MOTHER SINCE THE END OF MAY BUT 'OTHER FAMILY MEMBERS LED ME TO BELIEVE THEY WERE GETTING ALONG OKAY AT HOME, THAT THEY WERE CHECKING ON THEM REGULARLY BUT I DON'T THINK THEY WERE.' REBECCA REPORTS THAT THEIR HOUSE IS FILTHY AND THAT THEY HAVE BED BUGS AT HOME. REBECCA AT TIMES SEEMED TO HAVE TROUBLE FOCUSING ON ONE THOUGHT AT A TIME WHILE WE WERE TALKING SO NOT SURE THE ACCURACY OF WHAT SHE WAS SAYING. SHE SAID SHE THINKS AT ONE POINT PATIENT HAD AN ADVANCE DIRECTIVE NAMING HIS , AND ONLY HIS , HIS AGENT. BUT NOT CLEAR FROM REBECCA'S DESCRIPTION IF HIS IS ALERT AND ABLE TO MAKE DECISIONS FOR PATIENT BASED ON HER OWN HEALTH ISSUES. REBECCA COULD NOT GIVE ANY SPECIFIC EXAMPLES OF PHYSICAL OR FINANCIAL ABUSE OF PATIENT BY OTHER FAMILY MEMBERS. NURSING NOTIFIED THAT REBECCA REPORTS PT HAVING BED BUGS AT HIS HOME.
[2018-08-27 11:01] LABS: CRYSTALS None Seen /LPF (None Seen); YEAST-REFLEX Present (None Seen)
[2018-08-27 11:10] LABS: BE -3.3 mmol/L (-2 to +3); PCO2 48.8 mmHg (35.0-45.0); PO2 60.8 mmHg (75.0-100.0)
[2018-08-27 11:12] LABS: pH 7.296 (7.340-7.450)
--- NOTE | 2018-08-27 14:01 | NUR ---
WOUND CARE NOTE: ASSISTED VASCULAR BUSINESS COORDINATOR WITH DRESSING CHANGE TO RIGHT LEG. DRESSING REMOVED. DISCOLORATION NOTED TO THE ANTERIOR MARTINES. MACERATION NOTED TO THE MALLORY-WOUND. UNABLE TO REMOVE ALL GAUZE DUE TO IT BEING ADHERENT TO INCISION SITE. ATTEMPTED TO REMOVE GAUZE WITH SALINE, BUT CONCERNED WOULD CAUSE PATIENT TO BLEED. COVERED OLD GAUZE WITH ABDS. SECURED WITH KERLIX THEN ALEJANDRA. RECOMMEND MICRO TURNS KEEP LOW AIR LOSS MATTRESS ON ENCOURAGE GOOD NUTRTION/HYDRATION ONCE ABLE HOB OF BED <30 DEGREES ONCE ABLE LIMIT LAYERS OF LINEN UNDER PATIENT
--- NOTE | 2018-08-27 18:43 | NUR ---
08/27 Days: Decreased O2 saturations this morning. Increase FiO2 from 65 to 80%. Vent changes later in day with increase of peep from 8 to 10, resp 18 to 22, and decreased TV to 500. Plan for thoracentesis tomorrow am. PTT elevated, sub-q heparin held until after thoracentesis. Dressing changes completed on bilateral extremities. Right leg to be re-inforced only at this time. Patient tolerated small turns through-out the day. Levo restarted to help kidney profusion as SBP remained in the 90's. Lasix gtt increased to 10mg/hr from 5, no increase in UOP, 285 for this shift.
--- NOTE | 2018-08-27 21:22 | NUR ---
PATIENT'S TUBE FEED RESIDUAL AMOUNT 550 MLS, BROWN IN COLOR, LIQUID CONSISTENCY (LIKE A BROTH). DR MORENO NOTIFIED, TUBE FEED ON HOLD, KEPT IN LIS.
[2018-08-28] VITALS (18 sets, daily range): BP systolic 119–150; BP diastolic 39–62
--- NOTE | 2018-08-28 03:20 | NUR ---
PATIENT'S 02 SATS DOWN TO 81%, RT BAGGED HIM FOR 10 MINUTES AND PULLED OUT HIS ET TUBE TO 23CMS, INCREASED FIO2 TO 100%. 02 SATS BACK UP TO 99%
[2018-08-28 04:51] LABS: ALBUMIN 1.8 g/dL (3.4-5.0); CALCIUM 7.2 mg/dL (8.5-10.1); CREATININE 3.1 mg/dL (0.6-1.3); MAGNESIUM 1.7 mg/dL (1.8-2.4); PHOSPHORUS* 6.5 mg/dL (2.5-4.9); POTASSIUM 3.3 mmol/L (3.5-5.1)
[2018-08-28 05:22] LABS: ABSOLUTE LYMPHOCYTES 0.5 thou/uL (0.8-5.3); ABSOLUTE MONOCYTES 0.2 thou/uL (0.0-1.2); ABSOLUTE NEUTROPHILS 18.5 thou/uL (1.6-8.1); BASOPHILS 0.2 %; HEMATOCRIT 27.1 % (42.0-52.0); HEMOGLOBIN 8.9 gm/dL (14.0-18.0); LYMPHOCYTES 2.8 %; MCH 25.8 pg (26.0-34.0); MCHC 32.7 g/dL (28.0-37.0); MONOCYTES 1.2 %; MPV 8.4 fl. (7.2-11.1); NUCLEATED RBCS 0 /100WBC; PLATELET COUNT* 101 thou/uL (150-400); POLYS 95.8 %; RBC 3.43 mil/uL (4.50-6.00); RDW-CV 17.6 % (10.5-14.5); WBC 19.3 thou/uL (4.0-11.0)
[2018-08-28 06:15] LABS: ALBUMIN 1.9 g/dL (3.4-5.0); CALCIUM 6.8 mg/dL (8.5-10.1); CREATININE 3.1 mg/dL (0.6-1.3); POTASSIUM 3.3 mmol/L (3.5-5.1); TOTAL BILIRUBIN 1.2 mg/dL (<0.1-1.0); TOTAL PROTEIN 4.9 g/dL (6.4-8.2)
--- NOTE | 2018-08-28 07:30 | NUR ---
PT HAS LOW GRADE FEVER, COLD SPONGING AND COOL FAN APPLIED. COMPLETE BED BATH PROVIDED AND LINENS CHANGED. LEVOPHED TURNED OFF. LASIX CONTD AT 10MG/HR. TOTAL DRAIN FROM OG- 2750 MLS OVERNIGHT. LEFT HEEL WOUND DRESSED PER ORDERS.
[2018-08-28 09:01] LABS: BE 1.1 mmol/L (-2 to +3); PCO2 48.1 mmHg (35.0-45.0); PO2 72.7 mmHg (75.0-100.0); pH 7.365 (7.340-7.450)
--- NOTE | 2018-08-28 15:06 | PATH ---
[address] [address] PATHOLOGY RPT PROCEDURE Name: MINDYSEEMA Timbo Room: 002-P [facility] IN M.R.#: [id number] Admission: 08/13/18 Date of : 52 Discharge: Report #: [id number] Path Case #: [id number] [facility] Accession Number: [id number] . 01 Material submitted: . foot - RIGHT FOOT. Modifiers: right . 01 Clinical history: . Acute diabetic foot infection with sepsis . 02 Diagnosis: Right foot: - Benign right foot and ankle with extensive acute inflammation and necrosis at sites of all 5 missing toes and nonspecific ulceration on medial ankle, and with severe diffuse calcifying arteriosclerosis of anterior and posterior vasculature. (MAYRA:anh; 08/28/2018) MBTimbo/08/28/2018 . 02 Electronically signed: . Santiago Blakely MD, Pathologist NPI- [id number] . 01 Gross description: . The specimen is received in formalin, labeled "Seema Swain, right foot" and consists of an amputated right foot status post amputation of all 5 toes. The specimen is amputated 3.0 cm proximal to the ankle bone and the skin soft tissue and bone margin grossly appear viable. The specimen measures 14.8 cm heel to proximal skin soft tissue margin and 19.3 cm heel to distal foot. Protruding from the proximal margin is the tibia (1.2 cm in length and 1.8 cm in diameter) and fibula 1.2 cm in length and 3.4 cm in diameter). The skin shows marked gangrenous necrosis at the site of all 5 toe amputations which measures 13.8 x 10.5 cm. There is an additional ulcerated lesion on the medial ankle (2.5 x 1.5 cm) that extends 5.0 cm from the proximal skin soft tissue margin. The heel is pink red and erythematous with the dorsal foot consisting of brown flaky skin extending 4.0 cm from the skin soft tissue margin. The medial ankle and plantar foot necrosis/ulcerations expose the underlying soft tissue but no bone is grossly exposed. The vasculature reveals marked calcifications and stenosis of both the anterior and posterior vessels. Chemistry Faculty Member sections are submitted as follows: . A1: Skin soft tissue margin A2: Distal foot and medial ankle ulceration/necrosis (smaller frag from medial ankle) A3: Anterior and posterior vasculature A4: Bone deep to medial ankle (larger segment) and distal foot at post status first toe (2 smaller frag) [place] [address] PATHOLOGY RPT PROCEDURE Name: SEEMA SWAIN Room: [facility]- ADM IN M.R.#: [id number] Admission: 08/13/18 Date of : 52 Discharge: Report #: [id number] Path Case #: [id number] A3 and A4 are submitted following decalcification. (SDY; 08/27/2018) SYU/SYU . 02 Pathologist provided ICD-10: L08.9, I96, L97.319, I70.291 . 02 CPT . 351116, 421954 Specimen Comment: A courtesy copy of this report has been sent to Specimen Comment: [phone], , . Specimen Comment: Report sent to ,DR MORENO / DR CHAMPAGNE Performed at: 01 [facility] [address], [place], [place] [id number] MD Trace Fox MD Phone: [phone] Performed at: [address] [facility] Me[address] Deg[address] [place] [id number] MD Santiago Blakely MD Phone: [phone]
--- NOTE | 2018-08-28 17:31 | OP ---
[address] [address] OPERATIVE REPORT Name: SEEMA GUILLEN Room: [address] IN M.R.#: [id number] Admission: 08/13/18 Attend Phys: Kamar Wetzel MD Discharge: Date of : 52 Report #: [id number] THIS REPORT FOR: //name// CC: Adalberto Haines Physician staff Kamar CHAMPAGNE DATE OF SERVICE: 08/14/2018 SURGEON: Singh Dalal DPM PREOPERATIVE DIAGNOSIS: Bilateral foot wounds with deep tissue infection. POSTOPERATIVE DIAGNOSIS: Bilateral foot wounds with deep tissue infection. PROCEDURE: 1. Excision Dictation ends here <ELECTRONICALLY SIGNED> By: Singh Dalal DPM 08/28/18 1731 1645 1918Singh Dalal DPM /nt
--- NOTE | 2018-08-28 17:31 | OP ---
[address] [address] OPERATIVE REPORT Name: SEEMA GUILLEN Room: [address] IN M.R.#: [id number] Admission: 08/13/18 Attend Phys: Kamar Wetzel MD Discharge: Date of : 52 Report #: [id number] THIS REPORT FOR: //name// CC: Adalberto Haines Physician staff Kamar CHAMPAGNE DATE OF SERVICE: 08/14/2018 SURGEON: Singh Dalal DPM PREOPERATIVE DIAGNOSIS: Bilateral foot ulcerations with soft tissue infection complicated by diabetes mellitus. POSTOPERATIVE DIAGNOSIS: Bilateral foot ulcerations with soft tissue infection complicated by diabetes mellitus. PROCEDURE: 1. Plantar fasciectomy with deep tissue debridement, right foot. 2. Wound debridement, left calcaneus, to include removal of subcutaneous tissue. ANESTHESIA: MAC. INJECTABLES: None. HEMOSTASIS: None. SPECIMENS: Soft tissue, right plantar foot. CULTURES: Soft tissue, right plantar foot, aerobic and anaerobic. DESCRIPTION OF PROCEDURE: The patient was brought to the OR and placed on the table supine with induction of MAC anesthesia. Both feet were prepped and draped aseptically. A #10 blade was used to excise portion of the right plantar fascia along the plantar arch. A portion was sent for aerobic and anaerobic tissue culture and the remaining specimen for pathology. I debrided tendons, plantar fascia and subcutaneous tissue along the entire open wound to the right plantar foot. Electrocautery was utilized for hemostasis. The wound was irrigated with saline with bacitracin irrigant and padded dry. It was covered with Aquacel Ag, ABDs, Kerlix, and Can bandage. I then debrided the left posterior calcaneal wound with a fresh scalpel blade to remove subcutaneous tissue from the wound bed. Bleeding was stopped [place] [address] OPERATIVE REPORT Name: SEEMA GUILLEN Room: 002-P [facility] IN [facility].#: [id number] Admission: 08/13/18 Attend Phys: Kamar Wetzel MD Discharge: Date of : 52 Report #: [id number] pressure. The wound was irrigated and dressed with Aquacel Ag, ABDs, Kerlix gauze. The patient left the operating room with no complications noted. <ELECTRONICALLY SIGNED> By: Singh Dalal DPM 08/28/18 1731 1649 1925Singh Dalal DPM /nt
--- NOTE | 2018-08-28 17:31 | CON ---
[address] [address] CONSULTATION Name: GUILLENSEEMA Izquierdo Room: [address] ADM IN M.R.#: [id number] Admission: 08/13/18 Attend Phys: Kamar Wetzel MD Discharge: Date of : 52 Report #: [id number] THIS REPORT FOR: //name// CC: Adalberto Haines Physician staff Kamar CHAMPAGNE DATE OF SERVICE: 08/19/2018 CHIEF COMPLAINT: Followup of the bilateral foot wound debridement with deep tissue infection and septicemia. The patient was transferred to the ICU with acute respiratory failure, on BiPAP. He had thoracentesis today with pending cultures. This morning, he had angioplasty with stenting of the anterior tibial artery, pneumonia, [id number]-vr-[id number] kidney disease, poorly controlled diabetes mellitus, PAD, status post ICD and pneumonia. Blood cultures negative x 2. Surgical cultures grew MRSA and group B streptococcus. Surgical pathology was negative for malignancy, showed arterial sclerosis with benign fibrotic tissue, tentatively scheduled for right below-knee amputation pending clinical course. I discussed with Vascular Surgery today and I feel that the foot is nonsalvageable and likely contributing to this septicemia and chronic illness. He is currently on parenteral Zosyn and Zyvox. LABORATORY DATA: WBC 11.6, RBC 3.36, hemoglobin 8.7, hematocrit 27.2 and platelets 208. BUN 41, creatinine 3.3 and glucose 52. PHYSICAL EXAMINATION: No significant change to either foot. The right foot wound is severely necrotic with yellow fibronecrotic tissue and exposed tendons and fibrotic plantar fascial material. No exposed bone or joint. There is no fluctuance or crepitation. There is localized inflammation with excessive serous drainage to his bandage. The foot is warm with no pallor, cyanosis or signs of acute vascular embarrassment. There is some malodor. The tissue is very macerated and boggy consistent with subcutaneous infiltrates. No signs of abscess. The left calcaneal wound has a mixture of fibrous tissue with red granulation with no exposed bone or Achilles tendon. Decreased periwound inflammation with no pallor, cyanosis or signs of acute vascular embarrassment. His periwound capillary refill roughly 0.5 seconds. IMPRESSION: Bilateral foot wounds with deep tissue infection, possible osteomyelitis, right plantar forefoot. PLAN: Recommend right below knee amputation, as I feel this is a nonsalvageable foot contributing to septicemia and poor health. I do not feel that the limb is salvageable. I discussed with Vascular Surgery [place] [address] CONSULTATION Name: SEEMA GUILLEN Room: [address] IN .R.#: [id number] Admission: 08/13/18 Attend Phys: Kamar Wetzel MD Discharge: Date of : 52 Report #: [id number] tentatively scheduled for below knee amputation later this week. We will continue daily wound care. <ELECTRONICALLY SIGNED> By: Singh Dalal DPM 08/28/18 1731 1820 [id number] Dalal DPM /nt
--- NOTE | 2018-08-28 17:31 | CON ---
[address] [address] CONSULTATION Name: GUILLENSEEMA Izquierdo Room: [address] IN M.R.#: [id number] Admission: 08/13/18 Attend Phys: Kamar Wetzel MD Discharge: Date of : 52 Report #: [id number] THIS REPORT FOR: //name// CC: Adalberto Haines Physician staff Kamar CHAMPAGNE DATE OF SERVICE: 08/16/2018 CHIEF COMPLAINT: Status post debridement of bilateral foot wounds with deep tissue infection, complicated by type 2 diabetes and PAD. Preoperative swab culture grew group B streptococcus, surgical tissue cultures are pending. He is on parenteral vancomycin and Zosyn with good tolerance. Blood cultures were negative x 2. Arterial Doppler showed diffuse monophasic waveforms throughout both lower extremities with no evidence of focal stenosis. He has stable chronic systolic heart failure. He has completely insensate neuropathic feet, he denies foot pain. He has good appetite, denies fevers, chills, nausea or malaise. His vitals have been stable, and he has been afebrile since hospital admission. He is very deconditioned and basically nonambulatory. While at home, he spends most of his time in a wheelchair or bed. LABORATORY DATA: WBC 12.3, RBC 2.99, hemoglobin 7.7, hematocrit 24.1, platelets 265. BUN 24, creatinine 2.1, glucose 116. PHYSICAL EXAMINATION: VITAL SIGNS: Temperature 98.4, pulse 72, respirations 18, blood pressure 133/39. MUSCULOSKELETAL: The right plantar foot wound is body cleaner, with less slough, odor and drainage. There are sparse areas of granulation scattered throughout the plantar wound, but is mostly yellow fibronecrotic tissue. The foot is warm with no pallor, cyanosis or signs of acute vascular embarrassment. Marylin-wound capillary refill was roughly 0.5 seconds. There is no active bleeding, no fluctuance or crepitation. The left heel wound is stable with a mixture of granulation and yellowish slough with no exposed bone. The inflammation surrounding the left heel is significantly decreased. The left extremity has no signs of acute vascular embarrassment, and both lower extremities appear roughly the same in terms of temperature, color and turgor. IMPRESSION: Diabetic foot ulcerations with deep tissue infection, type 2 diabetes mellitus with peripheral arterial disease, systolic heart disease, venous insufficiency, debility. PLAN: Right plantar foot wound was gently debrided [place] [address] CONSULTATION Name: SEEMA GUILLEN Room: [address] IN [facility]#: [id number] Admission: 08/13/18 Attend Phys: Kamar Wetzel MD Discharge: Date of : 52 Report #: [id number] some slough and subcutaneous tissue from the plantar wound bed. It was cleansed and dressed with Aquacel Ag and covered with ABDs, Kerlix, and Can. The left wound was cleansed with no debridement and covered with Xeroform, ABDs, Kerlix, and Can. The patient to remain nonweightbearing to the legs, although he may ambulate for transfers and very short distances. He will benefit from prison placement. May consider wound vacuum to the right foot pending clinical course. I did consult Vascular Surgery to review his blood flow for healing potential. <ELECTRONICALLY SIGNED> By: Singh Dalal DPM 08/28/18 1731 0643 18Singh Dalal DPM /nt
--- NOTE | 2018-08-28 17:31 | CON ---
[address] [address] CONSULTATION Name: MINDYSEEMA Izquierdo Room: [address] ADM IN M.R.#: [id number] Admission: 08/13/18 Attend Phys: Kamar Wetzel MD Discharge: Date of : 52 Report #: [id number] THIS REPORT FOR: //name// CC: Adalberto Haines Physician staff Kamar CHAMPAGNE DATE OF SERVICE: 08/20/2018 CHIEF COMPLAINT AND HISTORY OF PRESENT ILLNESS: Bilateral foot ulcerations with deep tissue infection complicated by diabetes mellitus, acute renal failure, congestive heart failure, acute respiratory failure. He is off BiPAP today, resting comfortably. Scheduled for right below knee amputation on with Dr. Richmond. Thoracentesis cultures pending. Wound cultures grew MRSA/group B streptococcus. He is on parenteral Zosyn and linezolid with good tolerance. He is status past. He is status post right lower extremity angioplasty with anterior tibial spur. He is status post right lower extremity angioplasty and stenting. LABORATORY DATA: WBC 10.1, RBC 2.97, hemoglobin 7.8, hematocrit 23.9, platelets 235. BUN 46, creatinine 3.5, glucose 85. PHYSICAL EXAMINATION: Right foot wound basically unchanged. Extensive fibronecrotic tissue with a boggy soft tissue consistent with deep tissue infection and likely osteomyelitis. There is no healthy tissue or granulation to the right foot. The wound bed is soupy with serous drainage on the bandage. The left heel wound is improved with increased red granulation and less slough. There is no exposed bone or tendon to the left heel wound. No signs of acute vascular embarrassment to either extremity. IMPRESSION: Deep tissue infection with likely osteomyelitis to right foot; ulceration, left posterior calcaneus. PLAN: Wounds were cleansed and redressed with Can bandages to below the right knee for edema control. The patient is scheduled for right BK amputation in 2 days. We will continue daily wound care to the left heel, no need to change right leg bandage prior to surgery. <ELECTRONICALLY SIGNED> By: Singh Dalal DPM 08/28/18 1731 1223 [id number] Dalal DPM /nt
--- NOTE | 2018-08-28 17:31 | CON ---
[address] [address] CONSULTATION Name: GUILLENSEEMA Izquierdo Room: [address] ADM IN M.R.#: [id number] Admission: 08/13/18 Attend Phys: Kamar Wetzel MD Discharge: Date of : 52 Report #: [id number] THIS REPORT FOR: //name// CC: Adalberto Haines Physician staff Kamar CHAMPAGNE DATE OF SERVICE: 08/18/2018 CHIEF COMPLAINT: Status post debridement of bilateral foot wounds, surgical tissue cultures growing MRSA and group B streptococcus. He is on parenteral daptomycin and Zosyn. He had acute renal insufficiency due to vancomycin, which was discontinued. Vascular Surgery was consulted. Arterial Doppler shows monophasic flow throughout both lower extremities without focal velocity elevation to indicate stenosis. He feels well, has good appetite, denies pain, although he has advanced peripheral sensory neuropathy. He has remained nonweightbearing to both feet. Wound care consisted of topical Aquacel Ag and gauze bandages. LABORATORY DATA: WBC 11.6, RBC 3.36, hemoglobin 8.7, hematocrit 27.2, platelets 208. ESR 75. BUN 41, creatinine 3.5, glucose 85. PHYSICAL EXAMINATION: VITAL SIGNS: Temperature 97.5, pulse 98, respirations 15, blood pressure 126/48. SKIN: The right foot wound has a yellow/pale fibronecrotic tissue with interspersed areas of red granulation. There is some residual tenderness and plantar fibroma tissue along the proximal wound bed. There is no underlying fluctuance or crepitation, inflammations decreased since hospital admission. The foot is warm with roughly 0.5 seconds periwound capillary refill, no pallor, cyanosis or signs of acute vascular embarrassment. The left heel wound has red granulation with some pale slough and no exposed bone or tendon with decreased rhianna-wound inflammation. The left extremities appear stable from an arterial perfusion standpoint. IMPRESSION: Bilateral foot wounds with deep tissue infection, MRSA, group B streptococcus. PLAN: I explained to the patient, he is at high risk for right below knee amputation given the extent of the tissue loss and soft tissue infection. Although there is no evidence of osteomyelitis on CT and plain radiographs, I explained to the patient that low-grade osteomyelitis often does improve visible bone lysis. MRI is not an option due to his defibrillator. I recommend continued daily topical wound care in bed with bedside [place] [address] CONSULTATION Name: GUILLENSEEMA Room: [address] IN [facility]#: [id number] Admission: 08/13/18 Attend Phys: Kamar Wetzel MD Discharge: Date of : 52 Report #: [id number] feel like further surgical debridement in the OR is necessary at this time as most debris can be removed topically at bedside. He does not require any radical tissue debridement at this point. I will have Physical Therapy evaluate and allow him to be partial weightbearing to the right heel using a walker for transfers and very short distances. Otherwise, he is to be nonweightbearing and elevate his extremities. The patient wants to try to salvage the right foot, and he is willing to undergo a prolonged course of treatment. I will see the patient tomorrow and perform bedside debridement. <ELECTRONICALLY SIGNED> By: Singh Dalal DPM 08/28/18 1731 1510 [id number] Dalal DPM /nt
--- NOTE | 2018-08-28 18:50 | NUR ---
REPORT RECEIVED FROM JONY MENDEZ. ASSESSMENT CHARTED. AFEBRILE. PT STILL INTUBATED AND SEDATED ON FENTANYL AND PRECEDEX. TEMP DIALYSIS LINE PLACED. CRRT WILL START SOON. BRUNA GTT DCD.
[2018-08-29] VITALS (24 sets, daily range): BP systolic 84–158; BP diastolic 19–99
[2018-08-29 00:43] LABS: HEMATOCRIT 24.1 % (42.0-52.0); MCH 26.8 pg (26.0-34.0); MCHC 33.4 g/dL (28.0-37.0); MCV 80.1 fL (80.0-100.0); MPV 7.7 fl. (7.2-11.1); RBC 3.01 mil/uL (4.50-6.00); RDW-CV 17.4 % (10.5-14.5); WBC 10.8 thou/uL (4.0-11.0)
[2018-08-29 00:48] LABS: CALCIUM 7.2 mg/dL (8.5-10.1); CREATININE 2.6 mg/dL (0.6-1.3); MAGNESIUM 1.7 mg/dL (1.8-2.4); PHOSPHORUS* 5.5 mg/dL (2.5-4.9); POTASSIUM 3.3 mmol/L (3.5-5.1)
[2018-08-29 05:20] LABS: ABSOLUTE LYMPHOCYTES 0.5 thou/uL (0.8-5.3); ABSOLUTE MONOCYTES 0.2 thou/uL (0.0-1.2); ABSOLUTE NEUTROPHILS 9.2 thou/uL (1.6-8.1); BASOPHILS 0.4 %; EOSINOPHILS 0.1 %; HEMATOCRIT 24.5 % (42.0-52.0); HEMOGLOBIN 8.2 gm/dL (14.0-18.0); LYMPHOCYTES 5.4 %; MCH 26.9 pg (26.0-34.0); MCHC 33.6 g/dL (28.0-37.0); MCV 80.1 fL (80.0-100.0); MONOCYTES 1.6 %; MPV 8.1 fl. (7.2-11.1); NUCLEATED RBCS 0 /100WBC; PLATELET COUNT* 54 thou/uL (150-400); POLYS 92.5 %; RBC 3.06 mil/uL (4.50-6.00); RDW-CV 17.5 % (10.5-14.5)
--- NOTE | 2018-08-29 06:10 | NUR ---
PT. ON CRRT THROUGHOUT SHIFT. PT. WAKES UP EASILY, OPENS EYES SPONTANEOUSLY. BILAT SOFT RESTRAINTS IN PLACE THROUGHOUT SHIFT. PT. VPACED, AV PACED AT TIMES. BED LINENS CHANGED DUE TO LARGE AMOUNT OF SEROSANGUINOUS DRAINAGE. WILL CONTINUE TO MONITOR.
[2018-08-29 06:34] LABS: ALBUMIN 1.5 g/dL (3.4-5.0); CALCIUM 7.1 mg/dL (8.5-10.1); CREATININE 2.3 mg/dL (0.6-1.3); POTASSIUM 3.7 mmol/L (3.5-5.1); TOTAL BILIRUBIN 1.5 mg/dL (<0.1-1.0); TOTAL PROTEIN 4.8 g/dL (6.4-8.2)
[2018-08-29 07:01] LABS: MAGNESIUM 1.9 mg/dL (1.8-2.4); PHOSPHORUS* 5.3 mg/dL (2.5-4.9)
[2018-08-29 07:28] LABS: BE 0.2 mmol/L (-2 to +3); PCO2 47.4 mmHg (35.0-45.0); pH 7.357 (7.340-7.450)
[2018-08-29 07:31] LABS: PO2 183.7 mmHg (75.0-100.0)
[2018-08-29 07:49] LABS: HEMATOCRIT 24.6 % (42.0-52.0); HEMOGLOBIN 8.1 gm/dL (14.0-18.0); MCH 26.2 pg (26.0-34.0); MCHC 32.8 g/dL (28.0-37.0); MCV 80.1 fL (80.0-100.0); MPV 8.3 fl. (7.2-11.1); RBC 3.08 mil/uL (4.50-6.00); RDW-CV 17.7 % (10.5-14.5); WBC 8.8 thou/uL (4.0-11.0)
[2018-08-29 07:57] LABS: MAGNESIUM 1.7 mg/dL (1.8-2.4); PHOSPHORUS* 4.9 mg/dL (2.5-4.9)
[2018-08-29 08:02] LABS: APTT 42.3 Seconds (25.0-31.3); INR 1.4; PROTIME 14.1 Seconds (9.20-11.50)
[2018-08-29 08:03] LABS: PREALBUMIN 8.9 mg/dL (18.0-35.7)
[2018-08-29 08:08] LABS: CREATININE 2.1 mg/dL (0.6-1.3); POTASSIUM 3.5 mmol/L (3.5-5.1)
[2018-08-29 12:03] LABS: HEMATOCRIT 24.4 % (42.0-52.0); HEMOGLOBIN 8.1 gm/dL (14.0-18.0); MCH 26.9 pg (26.0-34.0); MCHC 33.4 g/dL (28.0-37.0); MCV 80.8 fL (80.0-100.0); MPV 8.4 fl. (7.2-11.1); RBC 3.02 mil/uL (4.50-6.00)
[2018-08-29 12:15] LABS: CALCIUM 7.1 mg/dL (8.5-10.1); CREATININE 1.9 mg/dL (0.6-1.3); MAGNESIUM 2.1 mg/dL (1.8-2.4); PHOSPHORUS* 3.9 mg/dL (2.5-4.9); POTASSIUM 3.7 mmol/L (3.5-5.1)
--- NOTE | 2018-08-29 13:23 | NUR ---
PT HAS BEEN ON HOLD FOR P.T. SINCE 08/19/18 DUE TO CHANGE IN MEDICAL STATUS RESULTING IN ICU ADMISSION AND INTUBATION. PATIENT WILL BE DC'ED FROM P.T. AT THIS TIME DUE TO PROLONGED DURATION ON ICU. REQUEST PHYSICIAN RE-ORDER P.T. WHEN PATIENT IS DEEMED APPROPRIATE FOR CONTINUED P.T. LUANNE BELTRE, MPT
[2018-08-29 16:13] LABS: HEMOGLOBIN 8.9 gm/dL (14.0-18.0); MCH 26.2 pg (26.0-34.0); MCHC 32.9 g/dL (28.0-37.0); MCV 79.6 fL (80.0-100.0); MPV 8.1 fl. (7.2-11.1); RBC 3.39 mil/uL (4.50-6.00); RDW-CV 17.7 % (10.5-14.5); WBC 13.7 thou/uL (4.0-11.0)
[2018-08-29 17:35] LABS: CALCIUM 7.9 mg/dL (8.5-10.1); CREATININE 1.8 mg/dL (0.6-1.3); PHOSPHORUS* 3.7 mg/dL (2.5-4.9)
--- NOTE | 2018-08-29 17:36 | NUR ---
RECEIVED REPORT FROM JONY LOCO. ASSESSMENT CHARTED. PT STILL INTUBATED AND SEDATED ON FENTANYL AND PRECEDEX GTTS. CRRT MAINTAINED. PT TOLERATING WELL. DOBUTAMINE STARTED PER CARDIO. ELECTROLYTES REPLACED PER NEPHRO. PT IS 1:1 AT THIS TIME. OG TO LIS. LITTLE URINE OUTPUT. PT HYPOTHERMIC. AVERY TANNER PLACED THIS AM. FAMILY UPDATED ON PLAN OF CARE. WILL CONTINUE TO MONITOR.
[2018-08-29 21:46] LABS: HEMATOCRIT 27.2 % (42.0-52.0); MCH 26.5 pg (26.0-34.0); MCHC 32.9 g/dL (28.0-37.0); MCV 80.5 fL (80.0-100.0); MPV 8.4 fl. (7.2-11.1); RBC 3.38 mil/uL (4.50-6.00); RDW-CV 17.8 % (10.5-14.5); WBC 15.3 thou/uL (4.0-11.0)
[2018-08-29 21:52] LABS: CALCIUM 7.8 mg/dL (8.5-10.1); CREATININE 1.8 mg/dL (0.6-1.3); MAGNESIUM 1.8 mg/dL (1.8-2.4); POTASSIUM 4.2 mmol/L (3.5-5.1)
[2018-08-30] VITALS (27 sets, daily range): BP systolic 100–155; BP diastolic 20–76
[2018-08-30 02:31] LABS: ABSOLUTE LYMPHOCYTES 0.6 thou/uL (0.8-5.3); ABSOLUTE MONOCYTES 0.3 thou/uL (0.0-1.2); BASOPHILS 0.3 %; HEMOGLOBIN 8.6 gm/dL (14.0-18.0); LYMPHOCYTES 4.2 %; MCH 26.7 pg (26.0-34.0); MCHC 33.2 g/dL (28.0-37.0); MCV 80.5 fL (80.0-100.0); MONOCYTES 2.1 %; MPV 8.4 fl. (7.2-11.1); NUCLEATED RBCS 0 /100WBC; PLATELET COUNT* 61 thou/uL (150-400); POLYS 93.4 %; RBC 3.23 mil/uL (4.50-6.00); RDW-CV 17.8 % (10.5-14.5); WBC 13.9 thou/uL (4.0-11.0)
[2018-08-30 02:42] LABS: CALCIUM 7.9 mg/dL (8.5-10.1); CREATININE 1.7 mg/dL (0.6-1.3); MAGNESIUM 2.1 mg/dL (1.8-2.4); PHOSPHORUS* 3.6 mg/dL (2.5-4.9); POTASSIUM 4.2 mmol/L (3.5-5.1)
[2018-08-30 05:11] LABS: BE -9.1 mmol/L (-2 to +3); PCO2 23.3 mmHg (35.0-45.0); pH 7.387 (7.340-7.450)
--- NOTE | 2018-08-30 05:12 | NUR ---
PT. SOMEWHAT PROGRESSING TOWARDS GOALS. PT. ON CRRT THROUGHOUT SHIFT. PRECEDEX AND FENTANYL GTT REMAIN INFUSING. PT. BECOMING MORE RESTLESS, PRECEDEX GTT INCREASED. NEXT LAB DRAW AT 0600. OLIGURIA. PT. DID FOLLOW COMMANDS AT 0400 ASSESSMENT. VPACED/FREQUENT PVC'S. LOW DIASTOLIC BP. DOBUTAMINE GTT REMAINS INFUSING AT 5MCG/KG/MIN. WILL CONTINUE TO MONITOR.
[2018-08-30 06:33] LABS: HEMOGLOBIN 8.5 gm/dL (14.0-18.0); MCH 26.4 pg (26.0-34.0); MCHC 32.6 g/dL (28.0-37.0); MCV 80.8 fL (80.0-100.0); MPV 8.6 fl. (7.2-11.1); RBC 3.22 mil/uL (4.50-6.00); RDW-CV 17.7 % (10.5-14.5); WBC 13.1 thou/uL (4.0-11.0)
[2018-08-30 06:47] LABS: CALCIUM 7.9 mg/dL (8.5-10.1); CREATININE 1.7 mg/dL (0.6-1.3); MAGNESIUM 2.1 mg/dL (1.8-2.4); PHOSPHORUS* 3.5 mg/dL (2.5-4.9); POTASSIUM 4.2 mmol/L (3.5-5.1)
--- NOTE | 2018-08-30 08:13 | CON ---
[address] [address] CONSULTATION Name: SEEMA GUILLEN Room: [address] IN .R.#: [id number] Admission: 08/13/18 Attend Phys: Kamar Wetzel MD Discharge: Date of : 52 Report #: [id number] THIS REPORT FOR: //name// CC: Adalberto Haines Physician staff Kamar CHAMPAGNE DATE OF SERVICE: 08/28/2018 PRIMARY CARE PHYSICIAN: Unknown. HISTORY OF PRESENT ILLNESS: The patient is being seen in consultation at the request of the hospitalist for evaluation of newly developed thrombocytopenia. Data is taken exclusively from records that are in [facility] as the patient is intubated and unresponsive, and there are no family members available. The patient was admitted to the hospital on 08/13/2018 with bilateral lower extremity wounds from diabetes mellitus. He has undergone several procedures because of wound infections, and he is being followed by Dr. Matos from Infectious Diseases. CURRENT MEDICATIONS: Do include linezolid, but they also include methylprednisolone and hydrocortisone. According to the nurse, there has not been any recent bleeding. PAST MEDICAL HISTORY: Significant for diabetes, hypertension, chronic back pain, history of alcoholism in the past, peripheral vascular disease, sepsis with shock, aspiration pneumonia, congestive heart failure. FAMILY HISTORY: Unknown. REVIEW OF SYSTEMS: Unobtainable. PHYSICAL EXAMINATION: GENERAL: Reveals an obese gentleman, lying semi-supine in the Intensive Care Unit, intubated on the ventilator with his eyes closed. The only person in attendance in the room when I was present was the hemodialysis nurse who was preparing to put the patient on CRRT. The patient's eyelids were closed when they were gently pulled back. HEENT: Pupils are equal at 3 mm bilaterally. Nasal passages could not be seen. Oropharynx revealed no visible lesions, but the view was limited. NECK: He had no lymphadenopathy in the cervical, clavicular or axillary regions. Upper extremities, lower extremities and torso and abdomen all reveal pitting edema, i.e., [place] [address] CONSULTATION Name: GUILLENSEEMA Timbo Room: [address] IN M.R.#: [id number] Admission: 08/13/18 Attend Phys: Kamar Wetzel MD Discharge: Date of : 52 Report #: [id number] LUNGS: Diminished air movement sounds in all lung loyola anteriorly. HEART: Revealed distant tones. There is no murmur. ABDOMEN: Obese, with some markings of subcutaneous ecchymoses and small hematomas (probably from injections). There is no detectable hepatomegaly or splenomegaly, and there was no involuntary guarding in this unresponsive gentleman. EXTREMITIES: Lower extremities reveal right lower extremity, foot, ____ BKA with stump wrapped. The left foot revealed only two remaining toes, with the others amputated and that leg was wrapped as well. He had mild pitting edema. No showers of petechiae. Extremities, abdominoflank reveal pitting edema. There were no fresh purpuric lesions. MEDICAL DATA: From 08/13/2018, I reviewed the history and physical by Dr. Wetzel. From 08/13/2018, I reviewed the progress note of Dr. Gaona. LABORATORY DATA: The platelet count was 414,000 on admission on 08/13, then dropped to 300,000, 265,000, 242,000 where it stabilized by 12/16, then it was back up to 339 on 08/22. Then, sequentially dropped to the current level today of 101,000. White blood cell count today 19,300, hemoglobin 8.9, hematocrit 27.1%, MCV 79, RDW 17.6. Protime and PTT were done on 08/18 and 08/23 respectively. Both were mildly prolonged. I personally reviewed the peripheral blood smear that is prepared from today's CBC. The red blood cells revealed moderate anisocytosis, but there were only rare schistocytes, and there were no acanthocytes, echinocytes, tear drop cells, target cells and no rouleaux formation. He did have coarse basophilic stippling. There were no spherocytes and no nucleated RBCs. Leukocytes reveal mild toxic changes in the segmented neutrophils, but there was no significant left shift. He had occasional plasmacytoid lymphocytes, monocytes were normal. I saw no eosinophils or basophils. Platelets are markedly decreased in number. The remaining platelets had normal size and granulation and no platelet agglutination. IMPRESSION: The patient rather suddenly has developed thrombocytopenia. 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 Hematopoietic stem cell disorder would not have come on with such rapidity. Another drug that may be causative is heparin. It is my recommendation to draw certain blood studies including heparin associated platelet antibody, fibrinogen, repeat PT and PTT, LDH and haptoglobin. No platelet transfusions need to be given at the present time, I do not think the patient has TTP. <ELECTRONICALLY SIGNED> By: Reji Rae MD 08/30/18 0813 2212 [id number] Rae MD /nt
[2018-08-30 10:03] LABS: HEMATOCRIT 24.6 % (42.0-52.0); HEMOGLOBIN 8.1 gm/dL (14.0-18.0); MCH 26.6 pg (26.0-34.0); MCV 80.8 fL (80.0-100.0); MPV 7.9 fl. (7.2-11.1); RBC 3.04 mil/uL (4.50-6.00); RDW-CV 17.3 % (10.5-14.5); WBC 12.6 thou/uL (4.0-11.0)
[2018-08-30 10:14] LABS: CALCIUM 7.9 mg/dL (8.5-10.1); CREATININE 1.7 mg/dL (0.6-1.3); MAGNESIUM 2.1 mg/dL (1.8-2.4); PHOSPHORUS* 3.1 mg/dL (2.5-4.9); POTASSIUM 4.1 mmol/L (3.5-5.1)
[2018-08-30 14:24] LABS: BE 2.8 mmol/L (-2 to +3); PCO2 43.6 mmHg (35.0-45.0); PO2 111.4 mmHg (75.0-100.0); pH 7.419 (7.340-7.450)
[2018-08-30 14:39] LABS: HEMATOCRIT 25.1 % (42.0-52.0); HEMOGLOBIN 8.2 gm/dL (14.0-18.0); MCH 26.2 pg (26.0-34.0); MCHC 32.6 g/dL (28.0-37.0); MCV 80.4 fL (80.0-100.0); MPV 8.5 fl. (7.2-11.1); RBC 3.13 mil/uL (4.50-6.00); RDW-CV 17.7 % (10.5-14.5); WBC 13.3 thou/uL (4.0-11.0)
[2018-08-30 14:58] LABS: ALBUMIN 1.9 g/dL (3.4-5.0); CALCIUM 8.1 mg/dL (8.5-10.1); CREATININE 1.5 mg/dL (0.6-1.3); MAGNESIUM 2.1 mg/dL (1.8-2.4); PHOSPHORUS* 2.8 mg/dL (2.5-4.9); TOTAL BILIRUBIN 1.2 mg/dL (<0.1-1.0); TOTAL PROTEIN 5.4 g/dL (6.4-8.2)
--- NOTE | 2018-08-30 17:55 | NUR ---
5/3 Days: KUB, no obstruction. Suppository given with no results. Trickle feeds restarted this afternoon. CRRT continues, taking off 300ml/hr. Labs Q4H, has required no replacements thus far. SBT x1 hour and tolerated, then placed on SIMV- only tolerated 1 hour, taking too shallow of breaths. Placed back on AC. Vitals solid. Continues to have weeping edema from dialysis cath site. BLE wound dressings changed. Tolerating turns.
[2018-08-30 18:22] LABS: HEMATOCRIT 24.6 % (42.0-52.0); HEMOGLOBIN 8.1 gm/dL (14.0-18.0); MCH 26.6 pg (26.0-34.0); MCV 80.7 fL (80.0-100.0); MPV 8.1 fl. (7.2-11.1); RBC 3.05 mil/uL (4.50-6.00); WBC 13.4 thou/uL (4.0-11.0)
[2018-08-30 18:33] LABS: CREATININE 1.5 mg/dL (0.6-1.3); MAGNESIUM 1.9 mg/dL (1.8-2.4); PHOSPHORUS* 2.8 mg/dL (2.5-4.9)
[2018-08-30 22:16] LABS: HEMATOCRIT 23.7 % (42.0-52.0); HEMOGLOBIN 7.8 gm/dL (14.0-18.0); MCH 26.3 pg (26.0-34.0); MCHC 32.8 g/dL (28.0-37.0); MCV 80.1 fL (80.0-100.0); MPV 8.6 fl. (7.2-11.1); RBC 2.96 mil/uL (4.50-6.00); RDW-CV 17.8 % (10.5-14.5); WBC 12.3 thou/uL (4.0-11.0)
[2018-08-30 22:19] LABS: CALCIUM 7.9 mg/dL (8.5-10.1); CREATININE 1.4 mg/dL (0.6-1.3); MAGNESIUM 2.2 mg/dL (1.8-2.4); PHOSPHORUS* 2.4 mg/dL (2.5-4.9); POTASSIUM 4.2 mmol/L (3.5-5.1)
[2018-08-31] VITALS (83 sets, daily range): BP systolic 73–153; BP diastolic 17–74
[2018-08-31 02:22] LABS: HEMATOCRIT 23.3 % (42.0-52.0); HEMOGLOBIN 7.7 gm/dL (14.0-18.0); MCH 26.5 pg (26.0-34.0); MCV 80.6 fL (80.0-100.0); MPV 8.2 fl. (7.2-11.1); RBC 2.89 mil/uL (4.50-6.00); RDW-CV 17.7 % (10.5-14.5); WBC 11.2 thou/uL (4.0-11.0)
[2018-08-31 02:47] LABS: CALCIUM 8.1 mg/dL (8.5-10.1); CREATININE 1.3 mg/dL (0.6-1.3); MAGNESIUM 2.1 mg/dL (1.8-2.4); PHOSPHORUS* 2.4 mg/dL (2.5-4.9); POTASSIUM 4.1 mmol/L (3.5-5.1)
--- NOTE | 2018-08-31 03:33 | NUR ---
PATIENT CRRT STOPPED AT 0245. AT 0210 CRRT MACHINE ALARMED "CHECK VENOUS AIR". TROUBLESHOOTING WAS DONE REPEATEDLY WITH NO RESOULTION TO ISSUE. DURING THAT TIME, THE VENOUS ACCESS PORT BEGAN TO CLOT AND REACHED A POINT WHERE IT WAS UNSAFE TO INFUSE. MACHINE WOULD NOT ALLOW FOR RETURN OF BLOOD TO PATIENT. NEPHROLOGY AWARE OF SITUAION. CRRT MACHINE IS OFF AND DISCONNECTED FROM PATINET. DIALYSIS SERVICE AND NEPHROLOGY WILL SEE PATIENT IN AM.
[2018-08-31 05:52] LABS: BE 0.2 mmol/L (-2 to +3); PCO2 47.5 mmHg (35.0-45.0); PO2 120.7 mmHg (75.0-100.0); pH 7.356 (7.340-7.450)
[2018-08-31 06:29] LABS: HEMATOCRIT 21.4 % (42.0-52.0); HEMOGLOBIN 7.1 gm/dL (14.0-18.0); MCH 26.7 pg (26.0-34.0); MCHC 32.9 g/dL (28.0-37.0); MCV 81.1 fL (80.0-100.0); MPV 8.5 fl. (7.2-11.1); NUCLEATED RBCS 0 /100WBC; RBC 2.64 mil/uL (4.50-6.00); RDW-CV 18.4 % (10.5-14.5); WBC 9.8 thou/uL (4.0-11.0)
[2018-08-31 06:35] LABS: PLATELET COUNT* 40 thou/uL (150-400)
[2018-08-31 06:39] LABS: APTT 31.5 Seconds (25.0-31.3); INR 1.3; PROTIME 13.2 Seconds (9.20-11.50)
[2018-08-31 06:41] LABS: ALBUMIN 1.7 g/dL (3.4-5.0); CALCIUM 7.6 mg/dL (8.5-10.1); CREATININE 1.4 mg/dL (0.6-1.3); POTASSIUM 4.2 mmol/L (3.5-5.1); TOTAL BILIRUBIN 1.3 mg/dL (<0.1-1.0); TOTAL PROTEIN 4.8 g/dL (6.4-8.2)
--- NOTE | 2018-08-31 06:48 | NUR ---
ASSESSMENT CHARTED. PATIENT NO LONGER ON CRRT. FUNCTION LOST AT 0210, LINES CLOTTED AT 0245. NEPHROLOGY CALLED AND ORDERS RECIEVED TO LEAVE CRRT DISCONNECTED UNTIL THEY COME AND ASSESS PATIENT. PATIENT ABLE TO WAKE OVER SEDATION. ADMINISTERED ATIVAN TWICE DURING SHIFT FOR AGITATION, WITH IMPROVEMENT. HEMATOLOGY CALLED FOR CRITICALLY LOW PLATELET COUNT. ORDERS RECIEVED NOT TO CALL OR TRANSFUSE PATIENT UNLESS PLATELETS FALL BELOW 20. EDEMA SLIGHTLY WORSENED SINCE CRRT ENDED. WEEPING ON ARMS NOTED. PATIENT TEMPERATURE COLIN TO 99.0 BY END OF SHIFT. AVERY WARMER REMOVED.
[2018-08-31 07:03] LABS: PREALBUMIN 11.4 mg/dL (18.0-35.7)
[2018-08-31 07:41] LABS: ABSOLUTE LYMPHOCYTES 0.3 thou/uL (0.8-5.3); ABSOLUTE MONOCYTES 0.3 thou/uL (0.0-1.2); ABSOLUTE NEUTROPHILS 9.2 thou/uL (1.6-8.1); HYPOCHROMASIA 3+; PLATELET ESTIMATE DECREASED
[2018-08-31 07:42] LABS: MICROCYTES 2+; TOXIC GRANULATION 2+
--- NOTE | 2018-08-31 09:12 | NUR ---
0718 ASSUMED CARE OF PATIENT. SEE DOCUMENTED ASSESSMENT. DR MTZ HERE AND WILL RESUME CRRT
--- NOTE | 2018-08-31 09:39 | NUR ---
DR WOOD HAS DISCONTINUED DOBUTAMINE BUT BECAME HYPOTENSIVE. STARTED ON DOPAMINE WITH GOOD BLOOD PRESSURE RESPONSE BUT INCTREASE HEART RATE AND ECTOPY
--- NOTE | 2018-08-31 10:25 | OP ---
[address] [address] OPERATIVE REPORT Name: SEEMA GUILLEN Room: [address] IN M.R.#: [id number] Admission: 08/13/18 Attend Phys: Kamar Wetzel MD Discharge: Date of : 52 Report #: [id number] THIS REPORT FOR: //name// CC: Adalberto Haines Physician staff Kamar CHAMPAGNE DATE OF SERVICE: 08/28/2018 PREOPERATIVE DIAGNOSIS: Multisystem organ failure with acute on chronic kidney disease. POSTOPERATIVE DIAGNOSIS: Multisystem organ failure with acute on chronic kidney disease. PROCEDURES: 1. Ultrasound-guided access to the right common femoral vein. 2. Temporary dialysis catheter placement. SURGEON: Mark King DO SYSTEMS SPEC: None. ANESTHESIA: Local. ESTIMATED BLOOD LOSS: 50 mL FINDINGS: The right common femoral vein was soft and compressible, suitable for access. After the catheter was placed, it aspirated and flushed well. CLINICAL HISTORY: The patient is a 68-year-old male with multisystem organ failure. He is in need of dialysis access for continuous renal replacement therapy. DESCRIPTION OF PROCEDURE: The procedure was considered emergent and was done for medical necessity. There is no DPOA and is unable to consent emergently for himself as he is intubated and sedated. The right groin was then prepped and draped in the usual sterile fashion. A timeout was performed identifying correct patient and procedure. Using ultrasound guidance, the right common femoral vein was identified, was accessed with an 18 gauge needle. These images were preserved. Using Seldinger technique, a wire was passed easily without resistance. A small skin incision was made. The tract was dilated over the wire. The catheter was then passed over the wire, was a 32 cm catheter. The wire [place] [id number] OPERATIVE REPORT Name: SEEMA GUILLEN Room: [address] IN [facility].#: [id number] Admission: 08/13/18 Attend Phys: Kamar Wetzel MD Discharge: Date of : 52 Report #: [id number] aspirated and flushed easily without issue. The catheter was then secured to the skin with a 0 silk suture. A sterile dressing was applied. All sponge, sharp instrument counts were correct. He tolerated the procedure well at the bedside and remained in the ICU in critical condition. <ELECTRONICALLY SIGNED> By: Mark King DO 08/31/18 1025 1821 [id number] King DO /nt
--- NOTE | 2018-08-31 13:10 | NUR ---
LABS DRAWN WELL REBANDED FOR BLOOD
[2018-08-31 13:26] LABS: HEMATOCRIT 21.1 % (42.0-52.0); HEMOGLOBIN 7.3 gm/dL (14.0-18.0); MCHC 34.4 g/dL (28.0-37.0); MCV 81.3 fL (80.0-100.0); MPV 8.3 fl. (7.2-11.1); RBC 2.6 mil/uL (4.50-6.00); RDW-CV 17.9 % (10.5-14.5); WBC 9.5 thou/uL (4.0-11.0)
[2018-08-31 13:29] LABS: CALCIUM 7.9 mg/dL (8.5-10.1); CREATININE 1.4 mg/dL (0.6-1.3); POTASSIUM 4.1 mmol/L (3.5-5.1)
--- NOTE | 2018-08-31 13:57 | NUR ---
LABS NOTED AND NO ELECTROLYTE REPLACEMENT NEEDED AT THIS TIME. CRITICAL PLATELES TO HOSPITALIST
--- NOTE | 2018-08-31 15:57 | NUR ---
PATIENT HAS ABRADED AREA ON COCCYX NOTED AT HANDOFF.HAVE KEPT PATIENT OFF OF COCCYX THIS SHIFT. ALSO HAS INTACT DRESSING TO LEFT ISCHIAL TUBEROSITY. NEW ORDERS BY DR HILLS NOTED
[2018-08-31 16:59] LABS: MCH 26.7 pg (26.0-34.0); MPV 9.1 fl. (7.2-11.1); RBC 2.59 mil/uL (4.50-6.00); RDW-CV 17.7 % (10.5-14.5); WBC 9.5 thou/uL (4.0-11.0)
--- NOTE | 2018-08-31 17:02 | NUR ---
LITTLE PROGRESSION TOWARDS GOALS TODAY. NO VENTILATOR WEANING TRIAL TODAY. CRRT RESUMED WITH LABS CHARTED. OFF OF DOBUTAMINE BUT ON DOPAMINE AT 0.5 MCG/KG/MN.Uunable to titrate off.ADVANCED TUBE FEEDS.SKIN REMAINS EDEMATOUS. ANTIBIOTICS ADJUSTED BY ID. PT CAN FOLLOW COMMANDS AND OPENS EYES. BROTHER VISITED AND SPOUSE CALLED.
[2018-08-31 17:10] LABS: HEMOGLOBIN 6.9 gm/dL (14.0-18.0)
[2018-08-31 17:16] LABS: CALCIUM 8.1 mg/dL (8.5-10.1); CREATININE 1.3 mg/dL (0.6-1.3); PHOSPHORUS* 2.6 mg/dL (2.5-4.9); POTASSIUM 4.6 mmol/L (3.5-5.1)
--- NOTE | 2018-08-31 17:26 | NUR ---
DR SELBY HERE AND REVIEWED LABS INCLUDING HEMOGLOBIN AND PLATELET COUNT
--- NOTE | 2018-08-31 18:13 | NUR ---
[address] OTT ON PT STATUS AND INPUT FROM CONSULTS. ORDERS NOTED. PT TO RECEIVE ONE UNIT PACKED CELLS
[2018-09-01] VITALS (94 sets, daily range): BP systolic 51–146; BP diastolic 23–97
[2018-09-01 00:24] LABS: HEMATOCRIT 23.9 % (42.0-52.0); HEMOGLOBIN 8.1 gm/dL (14.0-18.0); MCH 27.8 pg (26.0-34.0); MCHC 33.9 g/dL (28.0-37.0); MCV 81.9 fL (80.0-100.0); MPV 8.4 fl. (7.2-11.1); RBC 2.91 mil/uL (4.50-6.00); RDW-CV 18.2 % (10.5-14.5); WBC 10.1 thou/uL (4.0-11.0)
[2018-09-01 00:35] LABS: CALCIUM 8.2 mg/dL (8.5-10.1); CREATININE 1.1 mg/dL (0.6-1.3); MAGNESIUM 1.8 mg/dL (1.8-2.4); PHOSPHORUS* 2.1 mg/dL (2.5-4.9); POTASSIUM 4.3 mmol/L (3.5-5.1)
--- NOTE | 2018-09-01 04:43 | NUR ---
UNABLE TO OBTAIN AXILLARY OR ORAL DIGITAL TEMP READING, AVERY TANNER INITATED FOR ASSIST WITH NORMOTHERMIA. WILL CONTINUE TO MONITOR.
[2018-09-01 05:19] LABS: ABSOLUTE LYMPHOCYTES 0.7 thou/uL (0.8-5.3); ABSOLUTE MONOCYTES 0.2 thou/uL (0.0-1.2); ABSOLUTE NEUTROPHILS 9.2 thou/uL (1.6-8.1); BASOPHILS 0.1 %; EOSINOPHILS 0.1 %; HEMATOCRIT 23.5 % (42.0-52.0); HEMOGLOBIN 8.2 gm/dL (14.0-18.0); LYMPHOCYTES 6.7 %; MCH 28.7 pg (26.0-34.0); MCHC 34.8 g/dL (28.0-37.0); MCV 82.3 fL (80.0-100.0); MONOCYTES 1.8 %; MPV 8.7 fl. (7.2-11.1); NUCLEATED RBCS 0 /100WBC; POLYS 91.3 %; RBC 2.85 mil/uL (4.50-6.00)
[2018-09-01 05:27] LABS: ALBUMIN 1.8 g/dL (3.4-5.0); CALCIUM 8.4 mg/dL (8.5-10.1); CREATININE 1.1 mg/dL (0.6-1.3); MAGNESIUM 1.7 mg/dL (1.8-2.4); PHOSPHORUS* 1.8 mg/dL (2.5-4.9); TOTAL BILIRUBIN 1.4 mg/dL (<0.1-1.0)
[2018-09-01 05:36] LABS: PREALBUMIN 12.6 mg/dL (18.0-35.7)
[2018-09-01 05:39] LABS: PLATELET COUNT* 29 thou/uL (150-400)
--- NOTE | 2018-09-01 08:01 | NUR ---
PATIENT CARE ASSUMED AT 0700. PATIENT REMAINS ON VENTILATOR. ET 25 AT THE LIP NOTED PREVIOUS. PATIENT ALERT, ABLE TO FOLLOW COMMANDS, BUT ANXIOUS. ATTEMPTED RT TRIAL X2. UNABLE TO TOLERATE, TIDAL VOLUMES NOT ADEQATE, PATIENT PULLING AT TUBE. PRECEDEX RESTARTED. WILL ATTEMPT ONE MORE TIME PER RT. TUBE FEEDING OFF FOR TRIAL, RESIDUAL 0.
[2018-09-01 09:43] LABS: ALBUMIN 1.9 g/dL (3.4-5.0); CALCIUM 8.1 mg/dL (8.5-10.1); MAGNESIUM 2.4 mg/dL (1.8-2.4); PHOSPHORUS* 2.5 mg/dL (2.5-4.9); POTASSIUM 4.5 mmol/L (3.5-5.1)
[2018-09-01 13:04] LABS: HEMATOCRIT 25.6 % (42.0-52.0); HEMOGLOBIN 8.4 gm/dL (14.0-18.0); MCH 27.1 pg (26.0-34.0); MCHC 32.8 g/dL (28.0-37.0); MCV 82.6 fL (80.0-100.0); MPV 9.2 fl. (7.2-11.1); RBC 3.1 mil/uL (4.50-6.00); RDW-CV 17.8 % (10.5-14.5)
[2018-09-01 13:19] LABS: ALBUMIN 1.9 g/dL (3.4-5.0); CREATININE 1.1 mg/dL (0.6-1.3); MAGNESIUM 2.2 mg/dL (1.8-2.4); PHOSPHORUS* 2.5 mg/dL (2.5-4.9)
--- NOTE | 2018-09-01 17:19 | NUR ---
PATIENT SOMEWHAT PROGRESSING TOWARDS GOALS. DID NOT TOLERATE WEANING TRIAL THIS AM, ATTEMPTED X3. HOWEVER, ALERT ABLE TO FOLLOW SIMPLE COMMANDS AND ANSWER YES/NO QUESTIONS. REMAINS ON CRRT AT THIS TIME, TOLERATING WELL. TOLERATING TUBE FEEDINGS WITH LOW RESIDUALS. TRACING V-PACED WITH INTERMITTENT PERIODS OF A/V PACED ON CENTRAL STERILE TECH. REMAINS ON DOPAMINE AT 4 MCG/KG/MIN TO KEEP MAP >65. BMPS WNL THROUGHOUT SHIFT. PLT INCREASED TO 50,000. NO OTHER ACUTE EVENTS NOTED. UPDATED SUZETTE GUILLEN (SON) OVER THE TELEPHONE ABOUT FAISAL'S PLAN OF CARE, ALL QUESTIONS ANSWERED, NO CONCERNS VOICED BY SON.
[2018-09-01 17:20] LABS: CALCIUM 8.3 mg/dL (8.5-10.1); MAGNESIUM 2.2 mg/dL (1.8-2.4); PHOSPHORUS* 2.6 mg/dL (2.5-4.9); POTASSIUM 4.3 mmol/L (3.5-5.1)
[2018-09-01 23:01] LABS: CALCIUM 8.7 mg/dL (8.5-10.1); MAGNESIUM 2.2 mg/dL (1.8-2.4); PHOSPHORUS* 2.2 mg/dL (2.5-4.9); POTASSIUM 4.2 mmol/L (3.5-5.1)
[2018-09-02] VITALS (71 sets, daily range): BP systolic 63–117; BP diastolic 26–81
--- NOTE | 2018-09-02 00:21 | NUR ---
HYPOTENSIVE 83/43 MAP 61. DOPAMINE TITRATED UP TO MAX DOSE OF 2OMCG/KG/MIN. DECREASED CRRT FLUID REMOVAL FROM 300CC/HR TO 200CC/HR.
--- NOTE | 2018-09-02 00:38 | NUR ---
ULTRA FILTRATION RATE REMOVAL DECREASED FROM 200CC/HR TO 150CC/HR, CONTINUES WITH HYPOTENSION B/P 84/53 WITH MAP 63.
--- NOTE | 2018-09-02 01:16 | NUR ---
REMAINS HYPOTENSIVE WITH DOPAMINE GTT MAXED DOSE TRANSFUSING VIA INFUSION PUMP, ULTRA FILTRATON RATE STOPPED, CRRT CONTINUES WITH BLOOD CIRCULATING MODE, B/P 79/60. WILL CONTINUE TO MONITOR.
--- NOTE | 2018-09-02 01:26 | NUR ---
CONTINUES HYPOTENSIVE, AWAITING LEVOPHED GTT ORDERED FROM PHARMACY. PRECEDEX AND FENTANYL GTT STOPPED, WILL START LEVOPHED GTT WHEN AVAILABLE.
[2018-09-02 01:52] LABS: HEMOGLOBIN 10.3 gm/dL (14.0-18.0); MCH 26.8 pg (26.0-34.0); MCHC 32.2 g/dL (28.0-37.0); MCV 83.2 fL (80.0-100.0); MPV 10.3 fl. (7.2-11.1); RBC 3.85 mil/uL (4.50-6.00); RDW-CV 18.1 % (10.5-14.5); WBC 26.4 thou/uL (4.0-11.0)
[2018-09-02 01:58] LABS: ALBUMIN 2.2 g/dL (3.4-5.0); CALCIUM 8.8 mg/dL (8.5-10.1); CREATININE 1.1 mg/dL (0.6-1.3); MAGNESIUM 1.9 mg/dL (1.8-2.4); PHOSPHORUS* 2.8 mg/dL (2.5-4.9); POTASSIUM 3.9 mmol/L (3.5-5.1)
--- NOTE | 2018-09-02 03:40 | NUR ---
EMESIS X1 OUT OF MOUTH, SUCTIONED ORAL CAVITY AND INLINE SUCTIONING, AUDITORY GURGLING NOTED, DESATURATION LOW 80'S, INCREASED FIO2 FROM 45% TO 100%, RT TO ROOM TO ASSIST WITH EVALUATION, STAT PORABLE KUB AND CHEST XRAY ORDERED, SAO2 INCREASED TO 96% ON 100% FIO2, WILL CONTINUE TO MONITOR.
--- NOTE | 2018-09-02 03:45 | NUR ---
TUBE FEEDING REMAINS ON HOLD S/P HIGH GASTRIC RESIDUALS, OG HOOKED UP TO LIS AFTER VOMITING LARGE AMOUNT BROWNISH CURDLED TUBE FEEDNG LIKE SUBSTANCE. WILL VERIFY OG IN PROPER PLACMENT.
--- NOTE | 2018-09-02 03:50 | NUR ---
DR CHASE EVALUATED PORTABLE CHEST XRAY FILM VIA COMPUTER, NEW ORDER RECEIVED BY DR CHASE TO ADVANCE ETT 3CM, THEN ORDER NEW STAT PORTABLE CXRAY TO VERIFY ETT PLACEMENT AND POSSIBLE PNEUMOTHORAX. RT DEGROOT ADVANCED ETT 3CM ORDERED. SAO2 CONTINUES 100% WITH 100% FIO2, REPEAT PORABLE CXRAY OBTAINED. AWAITING RESULTS.
--- NOTE | 2018-09-02 04:00 | NUR ---
STARTED 100CC/HR FLUID REMOVAL VIA CRRT, REMAINS ON LEVOPHED AND DOPAMINE GTT'S FOR B/P SUPPORT
--- NOTE | 2018-09-02 04:49 | NUR ---
HYPOTHERMIC, RESULTS UNAVAILABLE FROM BOTH AXILLARY SITES AND ORAL CAVITY. AVERY TANNER INITATED TO ASSIST WITH TEMPERTURE REGULATION.
--- NOTE | 2018-09-02 04:50 | NUR ---
DIRECT RADIOLOGY PORTABLE CHEST XRAY AND PORTABLE KUB RESULTS RECEIVED VIA FAX, OG PLACEMENT VERIFIED, ETT IN APPROPRIATE PLACEMENT, NO PNEUMOTHORAX, UPDATED DR CHASE ON XRAY RESULTS, NO FURTHER ORDERS RECEIVED.
--- NOTE | 2018-09-02 05:18 | NUR ---
PT SUDDEN INCREASE HR TO 130'S SUBSTAINED VPACED RYTHEM. CRRT FLUID REMOVAL STOPPED. CONTINUES CRRT ULTRA FILTRATION WITHOUT FLUID REMOVAL, HR SUBSTAINING 130'S FOR APROX 15MIN. HR NOW DECREASED VPACED 106. WILL NOTIFY TIE LOADER AND UPDATE PT STATUS.
--- NOTE | 2018-09-02 05:34 | NUR ---
CALL PLACED TO NEPHROLOGY SERVICES, DR MTZ RETURNED PAGE, COMMUNICATED INCREASED VASOPRESSOR SUPPORT DURING NOC, DECREASED CRRT ULTRA-FILTRATION MODE WITHOUT FLUID REMOVAL, ATTEMPTED TO RESTART FLUID REMOVAL 100CC/HR VIA CRRT AT 0400, PT INCREASED HR, CRRT MODE BACK TO ULTRA-FILTRATION WITHOUT FLUID REMOVAL AT 0508, OKAY TO CONTINUE ULTRA-FILTRATION WITHOUT FLUID REMOVAL UNTIL PT HEMODYNAMICALLY STABLE.
--- NOTE | 2018-09-02 07:00 | NUR ---
POOR PROGRESSION TOWARDS GOALS, REMAINS ON LEVOPHED AND DOPAMINE GTT'S VIA INFUSION PUMP, ULTRA-FILTRATION EQUAL TO INPUT AMOUNT. AVERY TANNER REMAINS ON TO ASSIST WITH NORMOTHERMIA. 550CC OUT VIA OG TO LIS. 25CC DARK NITO URINE OUTPUT LANDIN CATHETER. NODS HEAD YES/NO TO SIMPLE QUESTONS AT TIMES.
--- NOTE | 2018-09-02 10:20 | NUR ---
RECEIVED REPORT FROM JONY TOMLINSON. ASSESSMENT CHARTED. AFEBRILE. PT STATUS DECLINED LAST NIGHT. CURRENTLY ON 3 PRESSORS. FENTANYL AND PRECEDEX FOR SEDATION NEEDS. HR IRREGULAR AND HYPOTENSIVE. ECHO COMPLETED. DR RICHARD, DR VALDES, DR OTT MADE PT DNR THIS AM. CRRT STOPPED THIS AM. PT NOT TOLERATING. DRS AWARE. WILL CONTINUE TO MONITOR.
--- NOTE | 2018-09-02 10:48 | 2DMMODE ---
[place] [address] 2 D/M-MODE ECHOCARDIOGRAM Name: SEEMA GUILLEN Room: 002-P ADM IN M.R.#: [id number] Admission: 08/13/18 Attend Phys: Kamar Wetzel MD Discharge: Date of : 52 Date of Service: 09/02/18 1047 Report #: [id number] THIS REPORT FOR: //name// APPROVED REPORT Study performed: 09/02/2018 08:56:35 EXAM: Limited 2D Echocardiogram BSA: 2.26 HR: 116 bpm BP: 88/43 mmHg Other Information Study Quality: Technically Limited Technically limited study due to inability to position patient. Indications Thrombus 2D Dimensions IVSd: 11.33 (7-11mm) LVDd: 55.64 mm PWd: 11.74 (7-11mm) Ascending Ao: 46.97 (22-36mm) LVDs: 43.64 (25-40mm) Aortic Root: 35.71 mm Left Ventricle Left ventricle is moderately dilated. There is global hypokinesis of the left ventricle. Mild concentric left ventricular hypertrophy. Left ventricular systolic function is severely decreased. LVEF is 25-30%. Right Ventricle The right ventricle is normal size. Pacemaker lead is present in the right ventricle. Atria The left atrium size is normal. The right atrium size is normal. Aortic Valve The Aortic valve is sclerotic[place] [address] 2 D/M-MODE ECHOCARDIOGRAM Name: SEEMA GUILLEN Room: 002[facility] IN M.R.#: [id number] Admission: 08/13/18 Attend Phys: Kamar Wetzel MD Discharge: Date of : 52 Date of Service: 09/02/18 1047 Report #: [id number] The mitral valve is normal in structure. Tricuspid Valve The tricuspid valve is normal in structure. Pulmonic Valve Pulmonic valve is not well visualized. Great Vessels Ascending aorta is dilated. IVC is not well visualized. Pericardium There is no pericardial effusion. <Conclusion> Left ventricle is moderately dilated. LVEF is 25-30%. The Aortic valve is sclerotic. <ELECTRONICALLY SIGNED> By: Quincy Ramírez MD, FAC 09/02/18 1047 1047 [id number] Quincy Ramírez MD, FAC /INF
--- NOTE | 2018-09-02 10:49 | NUR ---
PT.REMAINS ON VENT. PER RNPEG, PT.NOT TOLERATING CRRT. HE IS MAXED OUT ON PRESSORS. SUZETTE,SON, HAS CALLED AND SPOKEN WITH PEG. PT.IS A DNR. CM WILL FOLLOW.
[2018-09-02 12:08] LABS: HEPATITIS B SURFACE AG Negative (Negative)
[2018-09-03] VITALS (49 sets, daily range): BP systolic 56–106; BP diastolic 19–45
--- NOTE | 2018-09-03 00:28 | NUR ---
REMAINS NPO, OG TO LIS, SLIDING SCALE INSULIN REGIME DECREASED FROM MODERATE DOSE TO LOW DOSE. WILL CONITNUE TO MONITOR
[2018-09-03 04:25] LABS: HEMATOCRIT 27.1 % (42.0-52.0); HEMOGLOBIN 8.6 gm/dL (14.0-18.0); MCH 26.9 pg (26.0-34.0); MCHC 31.8 g/dL (28.0-37.0); MCV 84.6 fL (80.0-100.0); MPV 11.4 fl. (7.2-11.1); NUCLEATED RBCS 0 /100WBC; RBC 3.21 mil/uL (4.50-6.00); RDW-CV 18.4 % (10.5-14.5); WBC 26.4 thou/uL (4.0-11.0)
[2018-09-03 04:36] LABS: PLATELET COUNT* 35 thou/uL (150-400)
[2018-09-03 04:41] LABS: PREALBUMIN 10.7 mg/dL (18.0-35.7)
[2018-09-03 04:48] LABS: ALBUMIN 1.8 g/dL (3.4-5.0); CALCIUM 7.7 mg/dL (8.5-10.1); POTASSIUM 5.1 mmol/L (3.5-5.1); TOTAL BILIRUBIN 1.3 mg/dL (<0.1-1.0); TOTAL PROTEIN 5.1 g/dL (6.4-8.2)
[2018-09-03 04:52] LABS: CREATININE 2.2 mg/dL (0.6-1.3)
[2018-09-03 06:04] LABS: ABSOLUTE LYMPHOCYTES 1.1 thou/uL (0.8-5.3); ABSOLUTE MONOCYTES 1.8 thou/uL (0.0-1.2); ABSOLUTE NEUTROPHILS 23.5 thou/uL (1.6-8.1); ANISOCYTOSIS 1+; PLATELET ESTIMATE DECREASED; POIKILOCYTOSIS 1+
--- NOTE | 2018-09-03 07:00 | NUR ---
NO PROGRESSION TOWARDS GOALS, REMAINS ON MAXED DOSES OF LEVOPHED, NUNU-SYNEPHRINE, AND DOPAMINE GTT'S, MAP RANGING FROM 30'S TO LOW 50'S, MINIMAL RESPONSIVENESS, X1 NODDING HEAD APPROPRIATELY WHEN EDUCATED PT BEFORE ADMINISTERING INSULIN SLIDING SCALE DOSE, EYES OPEN ALL NOC, DOES NOT APPEAR TO VISUALLY TRACK MOST OF NOC, HAS NOT BEEN FOLLOWING SIMPLE COMMANDS THIS SHIFT, HR RANGING FROM ONE TEENS TO ONE THIRTY'S, FULL BED BATH WITH LINEN CHANGE PROVIDED, BARRIER CREAM TO COCCYX, OLIGURIC 25CC DARK NITO URINE OUT VIA LANDIN CATHETER, 1000CC OUT VIA OG TO LIS, SKIN JAUNDICED WITH MOTTLING, FENTANYL GTT 25CC/HR, REMAINS ON VENTILATOR, RESPIRATORY THERAPIST ABLE TO DECREASE FIO2 FROM 100 TO 90% THIS SHIFT. FALL PRCAUTIONS IN PLACE.
--- NOTE | 2018-09-03 15:34 | NUR ---
DISCUSSED WITH PATIENT STATUS REGUARDING INTERVENTIONS. PATIENT NODDED YES TO QUESTION OF BEING TIRED OF TREATMENT WITH NO POSITIVE END IN SIGHT. WAS ASKED IF HE WAS AT [facility] WITH TERMINATING CARE NODDED YES, VAL RUBIO RN WAS PRESENT AND WITNESSED CONVERSATION. PATIENT DENIED PAIN AT THIS TIME,
--- NOTE | 2018-09-03 20:07 | NUR ---
PATIENT REMAINS ON VENT REPORT GIVEN TO [facility]I [facility] IN AM PT BROTHER IN TO SEE PT WANTS TO BE NOTIFIED. OF RESULTS IN AM.
[2018-09-04] VITALS (31 sets, daily range): BP systolic 77–117; BP diastolic 24–46
--- NOTE | 2018-09-04 06:52 | NUR ---
REMAINS ON LVEOPHED AND NEOSENEPHRINE GTTS AT MAXED DOSES. ABLE TO NOD HEAD YES/NO FOR SIMPLE QUESTIONS INTERMITTENLY, NODDING HEAD YES FOR PAIN X1, INCREASED FENTANYL GTT FROM 25MCG TO 50MCG/HR VIA INFUSION PUMP FOR PAIN MANAGEMENT, GENERALIZED WEEPING EDEMA WORSENING. LOW GRADE TEMP 98.9 AXILLARY, VPACED HR UP TO 103 BPM, MAINTAINING SAO2 99% ON 80% FIO2 VIA VENTILATOR. OLIGURIC 20CC CONCENTRATED DARK NITO URINE OUTPUT VIA LANDIN CATHETER.
[2018-09-04 06:58] LABS: ABSOLUTE BASOPHILS 0.1 thou/uL (0.0-0.2); ABSOLUTE LYMPHOCYTES 0.8 thou/uL (0.8-5.3); ABSOLUTE MONOCYTES 1.5 thou/uL (0.0-1.2); BASOPHILS 0.2 %; HEMATOCRIT 23.3 % (42.0-52.0); HEMOGLOBIN 7.3 gm/dL (14.0-18.0); LYMPHOCYTES 2.5 %; MCH 26.4 pg (26.0-34.0); MCHC 31.2 g/dL (28.0-37.0); MCV 84.7 fL (80.0-100.0); MONOCYTES 4.8 %; MPV 11.7 fl. (7.2-11.1); NUCLEATED RBCS 0 /100WBC; PLATELET COUNT* 66 thou/uL (150-400); POLYS 92.5 %; RBC 2.75 mil/uL (4.50-6.00); RDW-CV 18.8 % (10.5-14.5); WBC 30.3 thou/uL (4.0-11.0)
[2018-09-04 07:04] LABS: ALBUMIN 1.7 g/dL (3.4-5.0); CALCIUM 7.8 mg/dL (8.5-10.1); CREATININE 2.9 mg/dL (0.6-1.3); MAGNESIUM 1.9 mg/dL (1.8-2.4); PHOSPHORUS* 5.7 mg/dL (2.5-4.9); POTASSIUM 5.7 mmol/L (3.5-5.1)
--- NOTE | 2018-09-04 11:46 | NUR ---
UNABLE TO OBTAIN APICAL PULSE AT 1041 VERIFIED BY PRANAV JEONG RN. SON DEVYN AND BROTHER RAQUEL NOTIFIED ALL OTHERS SEE CHART FOR SUMMARY.
--- NOTE | 2018-09-17 15:24 | CON ---
[address] [address] CONSULTATION Name: SEEMA GUILLEN Room: [facility] IN M.R.#: [id number] Admission: 08/13/18 Attend Phys: Kamar Wetzel MD Discharge: 09/04/18 Date of : 52 Report #: [id number] THIS REPORT FOR: //name// CC: Adalberto Haines Physician staff Kamar CHAMPAGNE DATE OF SERVICE: 08/30/2018 ADDENDUM The patient with history of diabetes who has had undergone right lower extremity amputation secondary to complications of his diabetes. We were consulted since the patient was not tolerating tube feeding. The patient also has been constipated without any stool output for the past week. His course has been complicated with pneumonia and kidney failure, currently on dialysis. He also has respiratory failure and heart failure for which he is on vent. We will consider motility agent and Dulcolax suppositories. If he continues to have no response, we may consider a second motility agent. We will follow up KUB and make further recommendation. <ELECTRONICALLY SIGNED> By: Calixto Varner MD 09/17/18 1524 [id number] [id number] Varner MD /nt
--- NOTE | 2018-09-17 15:24 | CON ---
[facility] [address] [place] [address] CONSULTATION Name: SEEMA GUILLEN Room: [address] IN M.R.#: [id number] Admission: 08/13/18 Attend Phys: Kamar Wetzel MD Discharge: 09/04/18 Date of : 52 Report #: [id number] THIS REPORT FOR: //name// CC: Adalberto Haines MD Physician staff Kamar CHAMPAGNE DICTATED BY: Lacy Daley [facility] DATE OF SERVICE: 08/30/2018 PRIMARY CARE PHYSICIAN: Adalberto Haines M.D. Please note at the time of this dictation, the patient was seen and physically examined by myself. REASON FOR CONSULTATION: Unable to tolerate tube feedings. HISTORY OF PRESENT ILLNESS: This is a 68-year-old male who was admitted on 08/13/2017 as a direct [facility] for significant bilateral lower extremity diabetic wounds that was not improving and subsequently then underwent surgery for amputation of the right lower extremity and has developed numerous complications since that time including aspiration pneumonia, sepsis, acute kidney injury, congestive heart failure and respiratory failure. He is currently on the vent and unable to obtain any information. All of that has been obtained from the chart. He is also on continuous dialysis at the present time as well. In talking with the nursing staff that he has not been tolerating his tube feedings, but it is unclear on the amount of residuals in the documentation. He is currently already on Reglan 10 mg t.i.d. IV and it has not made any difference. On 08/28/2018, he did have abdominal x-ray that showed nonobstructive bowel gas pattern; however, it has also been noted that he has not had a bowel movement that has been documented since 08/21/2018 either. ALLERGIES: No known drug allergies. MEDICATIONS: From home, see the MAR. PAST MEDICAL HISTORY: Significant for congestive heart failure, diabetes, chronic kidney disease and hypertension. PAST SURGICAL HISTORY: Recent right foot or right lower extremity amputation. The patient does have a pacemaker/defibrillator. FAMILY HISTORY: [place] [address] CONSULTATION Name: SEEMA GUILLEN Room: [address] IN [facility].#: [id number] Admission: 08/13/18 Attend Phys: Kamar Wetzel MD Discharge: 09/04/18 Date of : 52 Report #: [id number] SOCIAL HISTORY: Never has smoked but did have heavy alcohol use years ago and quit about 6 years ago. REVIEW OF SYSTEMS: Twelve-point review of systems is obtained from previously on the chart. PHYSICAL EXAMINATION: VITAL SIGNS: Temperature 36.7, pulse 85, respirations 20 and blood pressure 132/30. HEART: Regular rate and rhythm. LUNGS: Diminished with some crackles in the bases. ABDOMEN: Soft with hypoactive bowel sounds in all 4 quadrants with no masses or tenderness noted. LABORATORY DATA: Hemoglobin 8.5, white count is 13.1 and platelets are 59. Total bilirubin 1.5 yesterday. Alkaline phosphatase 84. ALT is 11 and AST is 19. CRP was 65.7 and GFR was 40. IMPRESSION: 1. Intolerable to tube feedings. 2. Constipation. No bowel movement documented since 08/21/2018. 3. Anemia. 4. Leukocytosis. 5. Acute kidney injury, on dialysis. 6. Aspiration pneumonia. 7. Congestive heart failure. 8. Status post right lower extremity amputation. PLAN: 1. Dulcolax suppository. 2. We will get an abdominal x-ray. 3. Reglan already 10 mg t.i.d. 4. We will await above results to make further recommendations. Thank you for allowing us to participate in this patient's care. Please do not hesitate to call with any questions in regard to this consult. <ELECTRONICALLY SIGNED> By: Calixto Varner MD 09/17/18 1524 [id number] [id number] Varner MD /nt
== END 2018-09-04 10:41 | DRG 853 ==
LOC: M.WC 08:48 → M.2W 10:12 → M.ICU 08-19 12:36
PROVIDERS: Internal Medicine; Internal Medicine Critical Care Medicine; Internal Medicine Hematology & Oncology; Internal Medicine Nephrology; Internal Medicine Pulmonary Disease; Registered Nurse; Specialist; Surgery; Surgery Vascular Surgery; ADMIT Family Medicine
PROC: 0J8Q0ZZ Division of Right Foot Subcutaneous Tissue and Fascia, Open Approach (ICD-10-PCS; 2018-08-14)
PROC: 0LBV0ZZ Excision of Right Foot Tendon, Open Approach (ICD-10-PCS; 2018-08-14)
PROC: 0JBR0ZZ Excision of Left Foot Subcutaneous Tissue and Fascia, Open Approach (ICD-10-PCS; 2018-08-14)
PROC: 30233N1 Transfusion of Nonautologous Red Blood Cells into Peripheral Vein, Percutaneous Approach (ICD-10-PCS; principal; 2018-08-16)
PROC: 5A09357 Assistance with Respiratory Ventilation, Less than 24 Consecutive Hours, Continuous Positive Airway Pressure (ICD-10-PCS; 2018-08-19)
PROC: 047P3ZZ Dilation of Right Anterior Tibial Artery, Percutaneous Approach (ICD-10-PCS; 2018-08-19)
PROC: B41D1ZZ Fluoroscopy of Aorta and Bilateral Lower Extremity Arteries using Low Osmolar Contrast (ICD-10-PCS; 2018-08-19)
PROC: 0W993ZZ Drainage of Right Pleural Cavity, Percutaneous Approach (ICD-10-PCS; 2018-08-20)
PROC: 5A09357 Assistance with Respiratory Ventilation, Less than 24 Consecutive Hours, Continuous Positive Airway Pressure (ICD-10-PCS; 2018-08-20)
PROC: 5A1955Z Respiratory Ventilation, Greater than 96 Consecutive Hours (ICD-10-PCS; 2018-08-21)
PROC: 0BH17EZ Insertion of Endotracheal Airway into Trachea, Via Natural or Artificial Opening (ICD-10-PCS; 2018-08-21)
PROC: 0Y6P0Z1 Detachment at Right 1st Toe, High, Open Approach (ICD-10-PCS; 2018-08-23)
PROC: 0Y6X0Z1 Detachment at Right 5th Toe, High, Open Approach (ICD-10-PCS; 2018-08-23)
PROC: 0Y6V0Z1 Detachment at Right 4th Toe, High, Open Approach (ICD-10-PCS; 2018-08-23)
PROC: 0Y6T0Z1 Detachment at Right 3rd Toe, High, Open Approach (ICD-10-PCS; 2018-08-23)
PROC: 0Y6R0Z1 Detachment at Right 2nd Toe, High, Open Approach (ICD-10-PCS; 2018-08-23)
PROC: 06HM33Z Insertion of Infusion Device into Right Femoral Vein, Percutaneous Approach (ICD-10-PCS; 2018-08-28)
PROC: B54BZZA Ultrasonography of Right Lower Extremity Veins, Guidance (ICD-10-PCS; 2018-08-28)
PROC: 5A1D90Z Performance of Urinary Filtration, Continuous, Greater than 18 hours Per Day (ICD-10-PCS; 2018-08-30)
PROC: 5A1D90Z Performance of Urinary Filtration, Continuous, Greater than 18 hours Per Day (ICD-10-PCS; 2018-08-30)
PROC: 5A1D90Z Performance of Urinary Filtration, Continuous, Greater than 18 hours Per Day (ICD-10-PCS; 2018-08-31)
PROC: 5A1D90Z Performance of Urinary Filtration, Continuous, Greater than 18 hours Per Day (ICD-10-PCS; 2018-09-01)
DX: A41.9 Sepsis, unspecified organism (principal); J15.6 Pneumonia due to other Gram-negative bacteria; I50.23 Acute on chronic systolic (congestive) heart failure; J96.00 Acute respiratory failure, unspecified whether with hypoxia or hypercapnia; E43 Unspecified severe protein-calorie malnutrition; R65.21 Severe sepsis with septic shock; N17.0 Acute kidney failure with tubular necrosis; K72.00 Acute and subacute hepatic failure without coma; I26.99 Other pulmonary embolism without acute cor pulmonale; J98.11 Atelectasis; I13.0 Hypertensive heart and chronic kidney disease with heart failure and stage 1 through stage 4 chronic kidney disease, or unspecified chronic kidney disease; N39.0 Urinary tract infection, site not specified; E11.52 Type 2 diabetes mellitus with diabetic peripheral angiopathy with gangrene; B17.9 Acute viral hepatitis, unspecified; J91.8 Pleural effusion in other conditions classified elsewhere; E87.2 Acidosis; E87.1 Hypo-osmolality and hyponatremia; D62 Acute posthemorrhagic anemia; K56.7 Ileus, unspecified; I82.409 Acute embolism and thrombosis of unspecified deep veins of unspecified lower extremity; D69.6 Thrombocytopenia, unspecified; I25.10 Atherosclerotic heart disease of native coronary artery without angina pectoris; E11.42 Type 2 diabetes mellitus with diabetic polyneuropathy; E11.621 Type 2 diabetes mellitus with foot ulcer; L97.529 Non-pressure chronic ulcer of other part of left foot with unspecified severity; L97.519 Non-pressure chronic ulcer of other part of right foot with unspecified severity; I87.2 Venous insufficiency (chronic) (peripheral); E11.22 Type 2 diabetes mellitus with diabetic chronic kidney disease; N18.3 Chronic kidney disease, stage 3 (moderate); E11.65 Type 2 diabetes mellitus with hyperglycemia; K59.00 Constipation, unspecified; B96.20 Unspecified Escherichia coli [E. coli] as the cause of diseases classified elsewhere; E83.51 Hypocalcemia; E88.09 Other disorders of plasma-protein metabolism, not elsewhere classified; E87.6 Hypokalemia; Z66 Do not resuscitate; Z51.5 Encounter for palliative care; I25.5 Ischemic cardiomyopathy; B95.62 Methicillin resistant Staphylococcus aureus infection as the cause of diseases classified elsewhere; B95.1 Streptococcus, group B, as the cause of diseases classified elsewhere; Z79.899 Other long term (current) drug therapy; Z89.422 Acquired absence of other left toe(s); Z79.4 Long term (current) use of insulin; Z95.810 Presence of automatic (implantable) cardiac defibrillator; Z68.29 Body mass index [BMI] 29.0-29.9, adult